=== PATIENT | male | born 1970 | race Caucasian/White ===

== ENCOUNTER 2023-03-31 09:13 | Outpatient (AMB) | payer BC, SELFPAY ==
--- NOTE | 2023-03-31 09:15 | MHC.PC.OV ---
Vital Signs 03/31/23 09:17 Height 6 ft 1 in Weight 211 lb 4 oz BMI 27.9 BP 124/82 Blood Pressure Location Rt brachial Position Sitting Respiration 13 Pulse 77 Pulse Source Pulse Oximeter Temp 98.3 F Temp Source Temporal Artery Scan Pulse Oximetry (%) 98 Oxygen Delivery Method Room Air Intake Visit Reasons: New patient-Requesting physical Intake Note: Patient states that he is currently using a C-PAP and has ran out of supplies and would like orders sent to medical supply store if possible. Patient states that he has had covid a few times and is concerned about lung functions. Patient states that when he was recently outside it felt like he had shortness of breathe and couldnt take a full deep breathe. 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 Marsh Last office visit/CPE: About 2 years Last routine blood work: At least 2 years ago Acute issue(s): Sleep apnea -He is on CPAP PMHx: Sleep apnea, chronic low back pain with bilateral saciatica SurgHx: Microdisectomy, vasectomy FHx: Mom: HTN, DM, asthma, cardiovascular disease SocHx: Nonsmoker. No drugs. Drinks alcohol occassionally He notes that he had a Cologuard test 3 years ago: normal He has not been vaccinated for shingles [facility] Medical History (Updated 03/31/23 @ 09:46 by Katie Peters CNP) Back disorder Surgical History (Updated 03/31/23 @ 09:27 by Gifty Blas MA) H/O microdiscectomy H/O vasectomy Family History (Updated 03/31/23 @ 09:29 by Gifty Blas MA) Mother Asthma High blood pressure Diabetes Cardiovascular disease Social History Housing: House Patient Tobacco Use Status: Never used Tobacco e-Cigarette/Vaping Use: Never Used service: No Current occupational status: employed 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 1. Little interest or pleasure in doing things: not at all 2. Feeling down, depressed, or hopeless: not at all 3. Trouble falling or staying asleep, or sleeping too much: not at all 4. Feeling tired or having little energy: several days 5. Poor appetite or overeating: not at all 6. Feeling bad about yourself - or that you are a failure or have let yourself or your family down: not at all 7. Trouble concentrating on things, such as reading the newspaper or watching television: not at all 8. Moving or speaking so slowly that other people could have noticed. Or the opposite - being so fidgety or restless that you have been moving around a lot more than usual: not at all 9. Thoughts that you would be better off or of hurting yourself in some way: not at all Total score: 1 Source: Developed by Drs. Eleuterio Mason, Namita Morley, Juan Carlos Bradley and colleagues, with an educational yosvany from [employer]. Thrive Questionnaire Date Thrive assessed: 03/31/23 I am a: Patient What is your living situation today?: I have a steady place to live Within the past 12 months, did the food you bought not last and you didn't have the money to get more?: Never true Within the past 12 months, did you worry whether your food would run out before you got money to buy more?: Never true Do you have trouble paying for medicines?: No Do you have trouble getting transportation to medical appointments?: No Do you have trouble paying your heating and electricity bill?: No Do you have trouble taking care of your child, family member or friend?: No Do you have trouble with day-to-day activities such as bathing, preparing meals, shopping, managing finances, etc.?: No Are you currently unemployed and looking for a job?: No Are you interested in more education?: No Please select the resources that you would like help with: None Currently or been in a relationship where the following occur: no concerns reported AUDIT C Alcohol Use Questionnaire (AUDIT-C) 1. How often do you have a drink containing alcohol?: 2-4 times a month 2. How many drinks containing alcohol do you have on a typical day when you are drinking?: 1 or 2 3. How often do you have six or more drinks on one occasion?: Never Total Score: 2 ZEINAB-7 AMB Questionnaire ZEINAB-7 Date ZEINAB - 7 assessed: 03/31/23 Feeling nervous, anxious, or on edge: 0 = Not at all Not being able to stop or control worryin = Not at all Worrying too much about different things: 0 = Not at all Trouble relaxin = Not at all Being so restless that it is hard to sit still: 0 = Not at all Becoming easily annoyed or irritable: 0 = Not at all Feeling afraid as if something awful might happen: 0 = Not at all Total ZEINAB-7 score (0-4 normal; 5-9 mild; 10-14 moderate; 15-21 severe): 0 Source: Developed by Drs. Eleuterio Mason, Namita Morley, Juan Carlos Bradley and colleagues, with an educational yosvany from [employer]. Review of Systems Const Details: Denies chills, Denies fatigue, Denies fever(s), Denies headache(s) and Denies weakness HEENT Denies change in vision, Denies dizziness, Denies headache(s), Denies hearing loss, Denies nasal congestion, Denies sinus pain, Denies sinus pressure and Denies sore throat Card Denies chest pain, Denies lightheadedness, Denies dyspnea and Denies other (palpitations) Resp Denies cough, Denies dyspnea and Denies wheezing GI Denies abdominal pain, Denies melena, Denies hematochezia, Denies change in bowel habits, Denies dyspepsia and Denies nausea Denies hematuria and Denies dysuria Musc Denies abnormal gait, Denies myalgias, Denies arthralgias, Denies numbness and Denies tingling Skin/Breast Denies rash, Denies unusual bruising and Denies wounds Neuro Denies abnormal gait, Denies dizziness, Denies headache(s), Denies memory loss, Denies numbness, Denies Sensory deficit (Neuro), Denies tingling and Denies weakness Psych Denies anxiety, Denies depression and Denies memory loss Endo Denies cold intolerance, Denies fatigue, Denies heat intolerance, Denies polydipsia and Denies polyuria Lukas/Lymph Denies easy bleeding and Denies easy bruising Aller/Immun Denies wheezing Physical exam (Primary Care) Vital Signs: Last Vital Signs Temp 98.3 F 03/31/23 09:17 Pulse 77 03/31/23 09:17 Resp 13 03/31/23 09:17 BP 124/82 03/31/23 09:17 Pulse Ox 98 03/31/23 09:17 Oxygen Delivery Method Room Air 03/31/23 09:17 BMI result Body Mass Index 27.9 Currently or been in a relationship where the following occur: no concerns reported Const Other: General: no acute distress, well developed, alert and awake Nutritional Appearance: well nourished Orientation/consciousness: patient oriented x3 HENMT Head: Yes normocephalic and Yes atraumatic Ears: hearing grossly normal bilaterally and TM's normal bilaterally General nose exam: Normal external nose present and Normal nares present Mouth: Normal oral and palatal mucosa present and moist mucous membranes Teeth and gingiva: dentition normal Throat: Yes oropharynx normal Eyes Pupils: Equal, round and reactive pupils present and Pupil accommodation reflex normal EOM: EOMs intact bilaterally Neck Neck: Yes normal visual inspection, Yes no lymphadenopathy and Yes trachea midline Thyroid: Thyroid normal Carotids: no bruits Lymphatic: no lymphadenopathy noted Chest Chest palpation & inspection: normal inspection of the chest Resp Effort & Inspection: normal respiratory effort Auscultation: clear to auscultation bilaterally Cardio Rate: regular rate Rhythm: regular rhythm Heart sounds: S1 normal heart sound present, S2 normal heart sound present, no gallops, no murmurs and no rubs Bruits: no abdominal aortic bruits and no carotid bruits GI Palpation (GI): No Abdominal aortic bruit present, Soft to palpation, nontender, No hepatosplenomegaly present and No Rebound tenderness present Auscultation: normal bowel sounds General: Yes no CVA tenderness Back/Spine/Pelvis Back: no CVA tenderness Cervical Spine: cervical ROM normal and No Cervical spine tenderness Thoracic/Lumbar Spine: thoraco-lumbar ROM normal, No pain with thoraco-lumbar ROM, No thoracic spinal tenderness and No lumbar spinal tenderness Skin General: warm and dry. Normal skin color. Normal skin turgor Lesions: no lesions Rashes: no rashes Trauma: no lacerations or abrasions Wounds: no wounds Nails: normal Neuro General: patient oriented x3, gait normal and CN's II-XI intact bilaterally Cranial nerves: Yes Equal, round and reactive pupils present Cognition (Neuro): normal cognition Gait exam (Neuro): Normal gait present Motor exam (neuro): 5/5 motor strength present throughout Sensory Exam: No Sensory deficit (Neuro) Deep tendon reflexes (DTR's): Right patellar reflex intensity grade: 2+ and Left patellar reflex intensity grade: 2+ Extrem General: Yes normal to inspection, No edema and No calf tenderness Psych Appearance: grossly normal Affect: normal affect Attitude: cooperative Thought process: Normal thought process present Assessment and Plan Assessment & Plan (1) Normal physical examination, routine: Code(s): Z00.00 - Encounter for general adult medical examination without abnormal findings Plan: No significant physical restrictions or limitations noted Advised to get fasting blood work done and schedule a telehealth visit for labs review Return with symptoms or concerns Verbalized understanding and agreed with plan (2) Sleep apnea: Code(s): G47.30 - Sleep apnea, unspecified Plan: He notes that he has been out of CPAP supplies Referred to sleep medicine Return with symptoms or concerns Verbalized understanding and agreed with treatment plan (3) Chronic low back pain with bilateral sciatica: Code(s): M54.41 - Lumbago with sciatica, right side; M54.42 - Lumbago with sciatica, left side; G89.29 - Other chronic pain Plan: h/o microdisectomy L5. He does yoga and take Advil as needed No acute symptoms Continue with current treatment Warm/cold compresses encouraged Follow-up with worsening or new symptoms Verbalized understanding and agreed with treatment plan (4) Colon cancer screening: Code(s): Z12.11 - Encounter for screening for malignant neoplasm of colon Plan: He notes that he had a Cologuard test 3 years ago: normal Referred to GI for colonoscopy (5) Vaccine counseling: Code(s): Z71.85 - Encounter for immunization safety counseling Plan: He has not been vaccinated for shingles Instructed on importance of vaccination and encouraged to get vaccinated for shingles Verbalized understanding and agreed with the plan (6) Laboratory tests ordered as part of a complete physical exam (CPE): Code(s): Z00.00 - Encounter for general adult medical examination without abnormal findings Plan: Fasting labs ordered as part of a complete physical exam. Advised to fast for at least 10 hours before getting labs drawn. May drink water Verbalized understanding and agreed with treatment plan. Orders: Orders TSH reflex Free T4 Today Z00.00 - Encounter for general adult medical examination without abnormal findings UA CC w/rflx Micro + Cult Today Z00.00 - Encounter for general adult medical examination without abnormal findings PSA, Ultra Sensitive Today Z00.00 - Encounter for general adult medical examination without abnormal findings Complete Blood Count Auto Diff Today Z00.00 - Encounter for general adult medical examination without abnormal findings Comprehensive Herreid. Panel Fast Today Z00.00 - Encounter for general adult medical examination without abnormal findings Lipid Panel Today Z00.00 - Encounter for general adult medical examination without abnormal findings Referrals Gastroenterology Referral Z12.11 - Encounter for screening for malignant neoplasm of colon Sleep Medicine Referral G47.30 - Sleep apnea, unspecified Coding Level of Care Code New Pt Prev Care 40-64y(85701) Diagnoses Normal physical examination, routine Z00.00 Sleep apnea G47.30 Chronic low back pain with bilateral sciatica M54.41; M54.42; G89.29 Colon cancer screening Z12.11 Vaccine counseling Z71.85 Laboratory tests ordered as part of a complete physical exam (CPE) Z00.00
[2023-03-31 09:17] VITALS: BP 124/82; PULSE 77; RESP 13; TEMP 36.8; O2SAT 98; BMI 27.9
== END 2023-03-31 09:57 | disposition home or self-care (01) ==
PROVIDERS: PCP Nurse Practitioner Family; Visit Provider Nurse Practitioner Family
DX: Z00.00 Encounter for general adult medical examination without abnormal findings (principal); G47.30 Sleep apnea, unspecified; M54.41 Lumbago with sciatica, right side; M54.42 Lumbago with sciatica, left side; G89.29 Other chronic pain; Z12.11 Encounter for screening for malignant neoplasm of colon; Z71.85 Encounter for immunization safety counseling
CPT/HCPCS: 99386

== ENCOUNTER 2023-04-13 07:58 | Outpatient (REF) | payer BC, SELFPAY ==
[2023-04-13 11:24] LABS: MANUAL DIFF FLAG NO
[2023-04-13 11:34] LABS: Basophils Percent Auto 0.4 % (0-2); Eosinophils Absolute Auto 0.2 X10*3/uL (0.0-0.4); Eosinophils Percent Auto 2.8 % (0-4); Hematocrit 48.5 % (42.0-52.0); Hemoglobin 16.4 g/dl (14.0-18.0); Imm Gran Abs Auto 0.02 X10*3/uL (0.00-0.03); Imm Gran Pct Auto 0.3 % (0.0-0.4); Lymphocytes Absolute Auto 2.2 X10*3/uL (1.2-4.9); Lymphocytes Percent Auto 31.7 % (20-40); Mean Corpuscular HGB Conc 33.8 g/dl (31.0-36.0); Mean Corpuscular Hemoglobin 29.7 pg (27.0-33.0); Mean Corpuscular Volume 87.9 fL (80.0-98.0); Mean Platelet Volume 11.2 fL (9.4-12.4); Monocytes Absolute Auto 0.6 X10*3/uL (0.1-1.2); Monocytes Percent Auto 8.4 % (2-11); Neutrophils Absolute Auto 3.9 x10*3/uL (2.0-8.3); Neutrophils Percent Auto 56.4 % (45-73); Platelet Count 228 X10*3/uL (160-400); Red Blood Count 5.52 X10*6/uL (4.60-5.80); Red Cell Distribution Width 11.5 % (11.0-16.0); White Blood Count 6.9 X10*3/uL (4.8-10.8)
[2023-04-13 11:34] LABS: Appearance Urine Clear; Color Urine Yellow; Glucose Urine UA Negative (Negative); Leukocyte Esterase Urine Negative (Negative); Nitrite Urine Negative (Negative); Urine Blood Negative (Negative); Urine Ketones Negative (Negative); Urine Protein Negative (Neg-Trace)
[2023-04-13 11:45] LABS: Alanine Aminotransferase 27 U/L (0-40); Albumin Level 4.5 g/dL (3.5-5.0); Alkaline Phosphatase 67 U/L (39-117); Anion Gap 13 (12-20); Aspartate Amino Transferase 22 U/L (5-37); Bilirubin Total 0.6 mg/dL (0.0-1.0); Blood Urea Nitrogen 17 mg/dL (9-16); Calcium 9.6 mg/dL (8.4-10.2); Carbon Dioxide 26 mmol/L (22-29); Chloride 106 mmol/L (96-108); Cholesterol 208 mg/dL (<200); Estimated Glomerular Filt Rate > 60; Glucose Fasting 87 mg/dL (60-99); HDL Cholesterol 44 mg/dL (>40); LDL Cholesterol Calculated 141 mg/dL (<100); Potassium 4.1 mmol/L (3.3-5.1); Sodium 141 mmol/L (135-145); Total Protein 7.4 g/dL (6.5-8.0); Triglycerides 119 mg/dL (<150)
[2023-04-13 12:02] LABS: TSH reflex Free T4 1.37 uIU/mL (0.32-4.0)
[2023-04-19 23:23] LABS: PSA, Ultra Sensitive 0.27 ng/mL
== END 2023-04-13 07:59 | disposition home or self-care (01) ==
LOC: HO.HMGCLDS 07:58
PROVIDERS: PCP Nurse Practitioner Family; Visit Provider Nurse Practitioner Family
DX: Z00.00 Encounter for general adult medical examination without abnormal findings (principal); Z12.5 Encounter for screening for malignant neoplasm of prostate
CPT/HCPCS: 36415; 80053; 80061; 81003; 84153; 84443; 85025

== ENCOUNTER → 2023-04-21 16:53 | Outpatient (AMB) | payer BC, SELFPAY ==
--- NOTE | 2023-04-21 16:06 | A.OFFPC_ITS ---
Intake Visit Reasons: labs review Allergies No Known Allergies Allergy (Verified 04/21/23 16:38) Medication List - Last Reconciled 04/21/23 by Katie Peters CNP No Known Home Meds Tobacco use date assessed: 03/31/23 HPI HPI Comments History of Present Illness Details This is a telephonic telehealth visit for review of recent blood work. Patient established care at the end of last month and had routine labs ordered. He offers no complaints and denies acute symptoms. 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 Eleuterio Mason, Namita Morley, Juan Carlos Bradley and colleagues, with an educational yosvany from [employer]. Review of Systems Const Details: Const Denies chills, Denies fatigue, Denies fever(s), Denies headache(s) and Denies weakness ENT Denies dizziness and Denies headache(s) Card Denies chest pain, Denies lightheadedness, Denies dyspnea and Denies other (Palpitations) Resp Denies cough, Denies dyspnea, Denies wheezing and Denies other ( shortness of breath) GI Denies abdominal pain, Denies melena, Denies hematochezia, Denies change in bowel habits, Denies dyspepsia and Denies nausea Denies hematuria and Denies dysuria Musc Denies abnormal gait, Denies myalgias, Denies arthralgias, Denies numbness and Denies tingling Skin/Breast Denies rash, Denies unusual bruising and Denies wounds Neuro Denies abnormal gait, Denies dizziness, Denies headache(s), Denies memory loss, Denies numbness, Denies Sensory deficit (Neuro), Denies tingling and Denies weakness Psych Denies anxiety, Denies depression, Denies memory loss Endo Denies cold intolerance, Denies fatigue, Denies heat intolerance, Denies polydipsia and Denies polyuria Aller/Immun Denies wheezing Physical exam (Primary Care) Tobacco/Smoking Status: Tobacco use Status Tobacco use date assessed 03/31/23 04/21/23 16:08 Patient Tobacco Use Status Never used Tobacco 04/21/23 16:08 e-Cigarette/Vaping Use Never Used 04/21/23 16:08 Thrive Assessment: Date of Thrive Assessment Date Thrive assessed 03/31/23 04/21/23 16:08 Const Other: Telehealth visit. No physical exam Telehealth Telehealth Location of provider rendering services: practice address Location of patient: other Patient Identification confirmed using: Name, : Yes Telehealth method: voice only Patient verbally consented to treatment: Yes Patient verbally consented to billing insurance company: Yes Patient informed of any privacy concerns related to visit: Yes Assessment and Plan Assessment & Plan (1) Hypercholesterolemia: Code(s): E78.00 - Pure hypercholesterolemia, unspecified Plan: Recent labs reviewed with the patient Results are unremarkable except for slightly elevated total cholesterol and LDL level, 208 and 141 respectively Advised to limit foods high in saturated fat and avoid foods high trans fat Routine exercise encouraged Will recheck lipid levels in 6 months. Advised to fast for 10-12 hours, may drink water only, and get blood work done a few days before his next visit Follow-up in 6 months or return sooner with symptoms or concerns Verbalized understanding and agreed with treatment plan Orders: Orders Lipid Panel 6 Months E78.00 - Pure hypercholesterolemia, unspecified Coding Level of Care Code Tele Est Pt Level 2 (98855) Diagnoses Hypercholesterolemia E78.00 Time Spent (min) 10
== END | disposition home or self-care (01) ==
LOC: HO.HMGFM 16:09
PROVIDERS: PCP Nurse Practitioner Family; Visit Provider Nurse Practitioner Family
DX: E78.00 Pure hypercholesterolemia, unspecified (principal)
CPT/HCPCS: 99441

== ENCOUNTER 2023-05-10 10:27 | Outpatient (AMB) | payer BC, SELFPAY ==
--- NOTE | 2023-05-10 10:28 | A.OFFVIS_ITS ---
Intake Vital Signs 05/10/23 10:30 Height 6 ft 1 in Weight 208 lb BMI 27.4 BP 130/66 Blood Pressure Location Rt brachial Position Sitting Pulse 77 Pulse Oximetry (%) 97 Oxygen Delivery Method Room Air Intake Visit Reasons: I-DOUBLE CUT SAWYER: Sleep Apnea-Confirrmed Allergies No Known Allergies Allergy (Verified 05/10/23 10:37) HPI HPI Comments History of Present Illness Details 53 y/o male patient presents for new in- person visit to manage sleep apnea. Pt moved from [place] and needs home care company to have CPAP supplies. He was diagnosed with mild degree of sleep apnea about 3 years ago. He has been using CPAP at 6 cmH2O, but not having supplies for a long time. The CPAP compliance and therapy response (02/09/23-05/09/23) reviewed. The usage days 91% and the average usage hours was 7 hrs 25 min. The residual AHI was 0.8/hr. Pt reports he sleeps well, rested with CPAP and daytime sleepiness has improved. 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 Cognitive needs: No Hearing needs: Yes Vision needs: No Review of Systems Const All systems reviewed & are unremarkable except as noted in HPI and below Physical Exam Vital Signs: Last Vital Signs Pulse 77 05/10/23 10:30 BP 130/66 05/10/23 10:30 Pulse Ox 97 05/10/23 10:30 Oxygen Delivery Method Room Air 05/10/23 10:30 BMI result Body Mass Index 27.4 Const General: cooperative and comfortable Nutritional Appearance: overweight Orientation/consciousness: patient oriented x3 Neck Neck: Yes full ROM and Yes supple Resp Effort & Inspection: normal respiratory effort and able to speak in complete sentences Neuro General: patient oriented x3 Cranial nerves: Yes CN's II-XII intact bilaterally Cognition (Neuro): normal cognition Gait exam (Neuro): Normal gait present Psych Appearance: grossly normal Affect: normal affect Attitude: cooperative Assessment & Plan Assessment & Plan (1) ESDRAS on CPAP: Code(s): G47.33 - Obstructive sleep apnea (adult) (pediatric) Plan Continue to use CPAP at 6cmH2O as patient experiences good clinical effects. Stressed compliance, use CPAP nightly and more than 4 hrs. Will send supply order with sleep study result to [facility]. Coding Level of Care Code New Pt Level 3 (99133) Diagnoses ESDRAS on CPAP G47.33
[2023-05-10 10:30] VITALS: BP 130/66; PULSE 77; O2SAT 97; BMI 27.4
== END 2023-05-10 10:48 | disposition home or self-care (01) ==
PROVIDERS: PCP Nurse Practitioner Family; Visit Provider Nurse Practitioner Family
DX: G47.33 Obstructive sleep apnea (adult) (pediatric) (principal)
CPT/HCPCS: 99203

== ENCOUNTER → 2023-05-10 10:27 | Outpatient (BNVA) | payer BC, SELFPAY | PROVIDERS: PCP Nurse Practitioner Family; Visit Provider Nurse Practitioner Family ==

== ENCOUNTER 2023-07-06 13:46 | Outpatient (AMB) | payer BC, SELFPAY ==
[2023-07-06 13:53] VITALS: BP 119/70; PULSE 85; BMI 27.7
--- NOTE | 2023-07-06 13:53 | A.OFFVIS_ITS ---
Intake Vital Signs 07/06/23 13:53 Height 6 ft 1 in Weight 209 lb 14.081 oz BMI 27.7 BP 119/70 Blood Pressure Location Lt brachial Position Sitting Pulse 85 Intake Visit Reasons: Colonoscopy Screening Intake Note: New patient in office today for colonoscopy screening. CC: Patient had never have a colonoscopy done before. Denies having any GI concerns today. Allergies No Known Allergies Allergy (Verified 07/06/23 13:56) HPI Colonoscopy Screening HPI Details 53-YEAR-OLD male here for preprocedural meeting to discuss a screening colonoscopy. He is referred by Katie Peters of [facility] primary care. PMX ESDRAS High cholesterol Chronic low back pain with bilateral sciatica * SURGICAL HISTORY Microdiscectomy Vasectomy * ALLERGIES: NKDA * [employer] LABS: Laboratory Tests 04/13/23 08:03 WBC 6.9 Hgb 16.4 Hct 48.5 Plt Count 228 Estimated GFR > 60 Total Bilirubin 0.6 AST 22 ALT 27 Alkaline Phosphata se 67 TSH 1.37 TODAY'S VISIT This is his first colonoscopy. He denies any bowel or upper GI problems. There are no prior problems with anesthesia or sedation.. He denies any cardiac or respiratory problems. No ID problems. He had a maternal uncle who had CRC, no other known FHX. 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 Cognitive needs: No Hearing needs: Yes Vision needs: No Review of Systems Const Denies fatigue, Denies fever(s), Denies night sweats, Denies poor appetite and Denies weight loss Eyes Details: glasses Reports requires corrective lenses ENT Reports Normal hearing present, Denies dental pain, Denies dysphagia, Denies hearing loss, Denies mouth pain, Denies odynophagia, Denies throat swelling, Denies tongue swelling and Reports other (Dentition adequate) Card Reports no additional complaints Resp Reports no additional complaints GI Details: Denies abdominal pain, Denies melena, Denies bloating, Denies hematochezia, Denies constipation, Denies GI cramping, Denies dysphagia, Denies excessive flatus, Denies early satiety, Denies heartburn, Denies diarrhea, Denies nausea, Denies odynophagia, Denies vomiting and Denies hematemesis Skin/Breast Denies pruritus, Denies lesions, Denies rash and Denies jaundice Neuro Reports Normal hearing present and Denies Abnormal speech present Endo Denies fatigue Aller/Immun Denies throat swelling and Denies tongue swelling Physical Exam Vital Signs: Last Vital Signs Pulse 85 07/06/23 13:53 BP 119/70 07/06/23 13:53 BMI result Body Mass Index 27.7 Const General: cooperative, no acute distress, well developed and well groomed Nutritional Appearance: well nourished Orientation/consciousness: oriented to person, oriented to place and oriented to time Limitations: No language barrier HEENT Head: Yes normocephalic and Yes atraumatic Eyes General: appearance normal, both eyes and all related structures Pupils: Equal, round and reactive pupils present Neck Neck: Yes normal visual inspection and Yes no lymphadenopathy Thyroid: Thyroid normal Resp Effort & Inspection: normal respiratory effort and able to speak in complete sentences Auscultation: clear to auscultation bilaterally Cardio Rate: regular rate Rhythm: regular rhythm Heart sounds: Normal, physiologic split S2 sound present Peripheral pulses: radial pulses present and posterior tibial pulses present GI Inspection: No distended and No Abdominal panniculus present Palpation (GI): Soft to palpation, nontender, no guarding, not rigid and No hepatosplenomegaly present Percussion: Yes normal to percussion Auscultation: normal bowel sounds Rectal Exam - Male: Yes deferred Skin General skin exam: no rashes or lesions noted, turgor normal, skin not dry, no jaundice, No spider nevi and no striae Rashes: no rashes Nails: normal Neuro General: oriented to person, oriented to place and oriented to time Cranial nerves: Yes Equal, round and reactive pupils present and Yes Normal hearing present Speech: No Abnormal speech present Extrem General: Yes normal to inspection, No clubbing, No cyanosis and No edema Psych Appearance: grossly normal and well kempt Mental Status: mental status grossly normal Speech and movement: Normal speech and movement present Affect: normal affect Attitude: cooperative Thought process: Normal thought process present and not confabulating Thought content: Normal thought content present Insight: Fair insight present (Psych) Judgement: Fair judgement present (Psych) Assessment & Plan Assessment & Plan (1) Pre-op examination: Code(s): Z01.818 - Encounter for other preprocedural examination (2) ESDRAS on CPAP: Code(s): G47.33 - Obstructive sleep apnea (adult) (pediatric) Plan This is his first colonoscopy. He denies any bowel or upper GI problems. There are no prior problems with anesthesia or sedation.. He denies any cardiac or respiratory problems. No ID problems. He had a maternal uncle who had CRC, no other known FHX. Orders: Orders Colonoscopy - GI Use Only 07/06/23 Z01.818 - Encounter for other preprocedural examination Medications: New peg 3350-electrolytes 236-22.74-6.74 -5.86 gram (Golytely) until fecal effluent is clear; do not exceed a total volume of 2,000 mL 240 mL PO Q10M 1 day 4,000 mL 0RF Z12.11 - Encounter for screening for malignant neoplasm of colon bisacodyl (Dulcolax (bisacodyl)) 10 mg (2 x 5 mg) PO BEDTIME 2 days 4 tabs 0RF Coding Level of Care Code New Pt Level 3 (96038) Diagnoses Pre-op examination Z01.818 ESDRAS on CPAP G47.33
== END 2023-07-06 14:17 | disposition home or self-care (01) ==
PROVIDERS: PCP Nurse Practitioner Family; Visit Provider Nurse Practitioner
DX: Z01.818 Encounter for other preprocedural examination (principal); Z12.11 Encounter for screening for malignant neoplasm of colon; G47.33 Obstructive sleep apnea (adult) (pediatric)
CPT/HCPCS: S0285

== ENCOUNTER → 2023-07-06 13:46 | Outpatient (BNVA) | payer BC, SELFPAY | PROVIDERS: PCP Nurse Practitioner Family; Visit Provider Nurse Practitioner ==

== ENCOUNTER 2023-11-23 08:10 | Outpatient (REF) | payer BC, SELFPAY ==
[2023-11-23 11:58] LABS: Cholesterol 203 mg/dL (<200); HDL Cholesterol 45 mg/dL (>40); LDL Cholesterol Calculated 139 mg/dL (<100); Triglycerides 99 mg/dL (<150)
== END 2023-11-23 08:11 | disposition home or self-care (01) ==
LOC: HO.HMGCLDS 08:10
PROVIDERS: Visit Provider Nurse Practitioner Family
DX: E78.00 Pure hypercholesterolemia, unspecified (principal)
CPT/HCPCS: 36415; 80061

== ENCOUNTER 2023-11-29 09:06 | Outpatient (AMB) | payer BC, SELFPAY ==
--- NOTE | 2023-11-29 09:09 | A.OFFPC_ITS ---
Vital Signs 11/29/23 09:14 Height 6 ft 1 in Weight 207 lb 2 oz BMI 27.3 BP 122/74 Blood Pressure Location Lt brachial Position Sitting Respiration 16 Pulse 82 Pulse Source Pulse Oximeter Temp 98.0 F Temp Source Oral Pulse Oximetry (%) 96 Oxygen Delivery Method Room Air Intake Visit Reasons: Rsch from 11/24 hypercoloestorolmia Intake Note: patient here to follow up on hypercoloestorolmia. [employer] Required: No Allergies No Known Allergies Allergy (Verified 11/29/23 09:35) Medication List - Last Reconciled 11/29/23 by Katie Peters CNP No Known Home Meds Tobacco use date assessed: 11/29/23 Dental Screening Dental Screen Date: 11/29/23 Did you have a dental visit in the last 12 months?: Yes Did you have a dental problem in the last 6 months where you did not have access to dental care?: No Was dental information given to patient?: Patient has dentist HPI HPI Comments History of Present Illness Details 53-year-old male presents for hyperchole sterolemia follow-up He admits to making healthy dietary changes, doing yoga, and stretching He notes that he has been unable to fully inhale since he initially had COVID in 2019. No cough, chest pain, palpitations, or constitutional symptoms [facility] Medical History (Updated 11/29/23 @ 09:50 by Katie Peters CNP) Laboratory tests ordered as part of a complete physical exam (CPE) Vaccine counseling Normal physical examination, routine Sleep apnea Colon cancer screening Back disorder Surgical History H/O microdiscectomy H/O vasectomy Family History Mother Asthma High blood pressure Diabetes Cardiovascular disease Maternal Grandmother Mouth cancer Social History Housing: House Patient Tobacco Use Status: Never used Tobacco e-Cigarette/Vaping Use: Never Used Second Hand Smoke Exposure: No service: No Current occupational status: employed Current occupation: [employer] Cognitive needs: No Hearing needs: Yes Vision needs: No Questionnaire Thrive Questionnaire Date Thrive assessed: 03/31/23 ZEINAB-7 AMB Questionnaire ZEINAB-7 Date ZEINAB - 7 assessed: 03/31/23 Source: Developed by Drs. Eleuterio Mason, aNmita Morley, Juan Carlos Bradley and colleagues, with an educational yosvany from [employer]. Review of Systems Const Details: Const Denies chills, Denies fatigue, Denies fever(s), Denies headache(s) and Denies weakness ENT Denies dizziness and Denies headache(s) Card Denies chest pain, Denies lightheadedness, Denies dyspnea and Denies other (Palpitations) Resp Denies cough, Denies dyspnea, Denies wheezing and Denies other ( shortness of breath) GI Denies abdominal pain, Denies melena, Denies hematochezia, Denies change in bowel habits, Denies dyspepsia and Denies nausea Denies hematuria and Denies dysuria Musc Denies abnormal gait, Denies myalgias, Denies arthralgias, Denies numbness and Denies tingling Skin/Breast Denies rash, Denies unusual bruising and Denies wounds Neuro Denies abnormal gait, Denies dizziness, Denies headache(s), Denies memory loss, Denies numbness, Denies Sensory deficit (Neuro), Denies tingling and Denies weakness Psych Denies anxiety, Denies depression, Denies memory loss Endo Denies cold intolerance, Denies fatigue, Denies heat intolerance, Denies polydipsia and Denies polyuria Aller/Immun Denies wheezing Physical exam (Primary Care) Vital Signs: Last Vital Signs Temp 98.0 F 11/29/23 09:14 Pulse 82 11/29/23 09:14 Resp 16 11/29/23 09:14 BP 122/74 11/29/23 09:14 Pulse Ox 96 11/29/23 09:14 Oxygen Delivery Method Room Air 11/29/23 09:14 BMI result Body Mass Index 27.3 Tobacco/Smoking Status: Tobacco use Status Tobacco use date assessed 11/29/23 11/29/23 09:17 Patient Tobacco Use Status Never used Tobacco 11/29/23 09:11 e-Cigarette/Vaping Use Never Used 11/29/23 09:11 Thrive Assessment: Date of Thrive Assessment Date Thrive assessed 03/31/23 11/29/23 09:11 Const Other: General: no acute distress and well developed Nutritional Appearance: well nourished Orientation/consciousness: patient oriented x3 [facility] Head: Yes normocephalic and Yes atraumatic Eyes General: appearance normal, both eyes and all related structures Pupils: Equal, round and reactive pupils present EOM: EOMs intact bilaterally Resp Effort & Inspection: normal respiratory effort Auscultation: clear to auscultation bilaterally Cardio Rate: regular rate Rhythm: regular rhythm Heart sounds: S1 normal heart sound present, S2 normal heart sound present, no gallops, no murmurs and no rubs GI Palpation (GI): No Abdominal aortic bruit present, Soft to palpation, nontender, No hepatosplenomegaly present and No Rebound tenderness present Auscultation: normal bowel sounds General: Yes no CVA tenderness Back/Spine/Pelvis Back: no CVA tenderness Cervical Spine: cervical ROM normal and No Cervical spine tenderness Thoracic/Lumbar Spine: thoraco-lumbar ROM normal, No pain with thoraco-lumbar ROM, No thoracic spinal tenderness and No lumbar spinal tenderness Extrem General: Yes normal to inspection, No edema and No calf tenderness Skin General: warm and dry. Normal skin color. Normal skin turgor Neuro General: patient oriented x3, gait normal and no focal neuro deficit Cranial nerves: Yes Equal, round and reactive pupils present Cognition (Neuro): normal cognition Gait exam (Neuro): Normal gait present Sensory Exam: No Sensory deficit (Neuro) Psych Appearance: grossly normal Affect: normal affect Attitude: cooperative Thought process: Normal thought process present Assessment and Plan Assessment & Plan (1) Hypercholesterolemia: Code(s): E78.00 - Pure hypercholesterolemia, unspecified Plan: Slight improvement with recent total cholesterol and LDL levels, to 203 and 139 respectively. Triglycerides and HDL levels are normal Advised to limit foods high in saturated fat and avoid foods high in trans fat Routine exercise encouraged Will recheck lipid panel level. Advised to fast for 10-12 hours, may drink water only, and get blood work done before his next visit Follow-up for an extended physical exam and hypercholesterolemia in 4 months Return with symptoms or concerns Verbalized understanding and agreed with the treatment plan (2) Laboratory tests ordered as part of a complete physical exam (CPE): Code(s): Z00.00 - Encounter for general adult medical examination without abnormal findings Plan: Fasting labs ordered as part of a complete physical exam. Advised to fast for at least 10 hours before getting labs drawn. May drink water Verbalized understanding and agreed with treatment plan. (3) Difficulty breathing: Code(s): R06.89 - Other abnormalities of breathing Plan: Unable to fully inhaled since he initially had COVID in 2019. No chest pain, palpitation, cough, or constitutional symptoms. No acute symptoms Lung sounds clear bilaterally Will trial albuterol inhaler. Advised to use as prescribed Follow-up with worsening or new symptoms; may referred to pulmonology Verbalized understanding and agreed with the plan Orders: Orders Comprehensive [place]. Panel Fast 4 Months Z00.00 - Encounter for general adult medical examination without abnormal findings Lipid Panel 4 Months Z00.00 - Encounter for general adult medical examination without abnormal findings Complete Blood Count Auto Diff 4 Months Z00.00 - Encounter for general adult medical examination without abnormal findings TSH reflex Free T4 4 Months Z00.00 - Encounter for general adult medical examination without abnormal findings UA CC w/rflx Micro + Cult 4 Months Z00.00 - Encounter for general adult medical examination without abnormal findings Microalbumin, Random (w Creat) 4 Months Z00.00 - Encounter for general adult medical examination without abnormal findings PSA, Ultra Sensitive 4 Months Z00.00 - Encounter for general adult medical examination without abnormal findings Medications: New albuterol sulfate 90 mcg/actuation 2 puffs inhalation Q4-6H PRN 8.5 grams 3RF shortness of breath or wheezing Coding Level of Care Code Est Pt Level 4 (25697) Complex EM visit Add On G2211 Diagnoses Hypercholesterolemia E78.00 Laboratory tests ordered as part of a complete physical exam (CPE) Z00.00 Difficulty breathing R06.89
[2023-11-29 09:14] VITALS: BP 122/74; PULSE 82; RESP 16; TEMP 36.7; O2SAT 96; BMI 27.3
== END 2023-11-29 09:50 | disposition home or self-care (01) ==
PROVIDERS: PCP Nurse Practitioner Family; Visit Provider Nurse Practitioner Family
DX: E78.00 Pure hypercholesterolemia, unspecified (principal); Z00.00 Encounter for general adult medical examination without abnormal findings; R06.89 Other abnormalities of breathing
CPT/HCPCS: 99214

== ENCOUNTER 2023-12-30 08:10 | Day surgery (SDC) | payer BC, SELFPAY ==
--- NOTE | 2023-12-29 10:40 | HO.ANESPROP2 ---
Documented by User: Katharina Phipps NP 12/29/23 10:40 HPI - Anesthesia Eval Consult details Narrative: 53yo M for Colonoscopy PMFSH Active Problems Active Problems: All Active Problems Difficulty breathing (Acute) Laboratory tests ordered as part of a complete physical exam (CPE) (Acute) Pre-op examination (Acute) ESDRAS on CPAP (Acute) Hypercholesterolemia (Acute) Chronic low back pain with bilateral sciatica (Acute) Past Medical History Medical History (Updated 12/30/23 @ 08:55 by Antonina Garcia, RN) Asthma Vaccine counseling Normal physical examination, routine Sleep apnea Colon cancer screening Laboratory tests ordered as part of a complete physical exam (CPE) Back disorder Family History Family History Mother Asthma High blood pressure Diabetes Cardiovascular disease Maternal Grandmother Mouth cancer Surgical History Surgical History H/O microdiscectomy H/O vasectomy Social History Social History Housing: House Are you a primary career placement services counselor to a significant other at home: No Do you presently have visiting nurse or other home services: No Patient Tobacco Use Status: Never used Tobacco e-Cigarette/Vaping Use: Never Used Second Hand Smoke Exposure: No Use of substances other than those prescribed or required for medical reasons: No Have you been hit, kicked, punched, or otherwise hurt by someone within the past year? 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 Cognitive needs: No Hearing needs: Yes Vision needs: No Meds Allergies Allergy/AdvReac Type Severity Reaction Status Date / Time No Known Allergies Allergy Verified 11/29/23 09:35 Assessment and Plan Assessment Anesthesia Assessment: Chart Reviewed Documented by User: Maribel Peacock MD 12/30/23 09:30 [facility] Past Medical History Medical History (Updated 12/30/23 @ 08:55 by Antonina Garcia, RN) Asthma Vaccine counseling Normal physical examination, routine Sleep apnea Colon cancer screening Laboratory tests ordered as part of a complete physical exam (CPE) Back disorder Family History Family History Mother Asthma High blood pressure Diabetes Cardiovascular disease Maternal Grandmother Mouth cancer Family history of problems with anesthesia: No Surgical History Surgical History H/O microdiscectomy H/O vasectomy History of Problems with Anesthesia: No Social History Social History Housing: House Are you a primary career placement services counselor to a significant other at home: No Do you presently have visiting nurse or other home services: No Patient Tobacco Use Status: Never used Tobacco e-Cigarette/Vaping Use: Never Used Second Hand Smoke Exposure: No Use of substances other than those prescribed or required for medical reasons: No Have you been hit, kicked, punched, or otherwise hurt by someone within the past year? 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 Cognitive needs: No Hearing needs: Yes Vision needs: No Meds Allergies Allergy/AdvReac Type Severity Reaction Status Date / Time No Known Allergies Allergy Verified 11/29/23 09:35 Exam Airway Mallampati Class: II TM Dist: >3cm Neck ROM: Full Heart: rrr Lungs: cta Assessment and Plan Assessment Anesthesia Assessment: Anesthesia Plan Discussed Final Anesthetic Review Family History of Problems with Anesthesia: No History of Problems with Anesthesia: No NPO: Yes ASA Class: II Final Preanesthetic Review: No Changes in Pt Med Stat, Meds/Allgs Chart Reviewed and Consent Obtained/Reviewed Patient Risk: Low Procedure Risk: Low Anesthetic Plan Anesthetic Plan: MAC: Disposition: Standard PACU
--- NOTE | 2023-12-30 07:38 | MHC.SHP ---
Pre-Procedural Eval Section A - 24 Hr Update-Section A only Date of Service: 12/30/23 The patient is an INPATIENT: No The patient has been examined within 24 hours of the surgical procedure. The History & Physical has been completed within 30 days and I have reviewed it.: No Section B - Complete if H&P > 30 days Chief Complaint: Colon cancer screening Relevant Family History (Specify if Yes): No Relevant Social History: None Present Medications: see Short Stay Collaborative assessment Medical History: Significant History (Sleep apnea Colon cancer screening Laboratory tests ordered as part of a complete physical exam (CPE) Back disorder) History of Previous Operations: Relevant previous surgery/procedure and date(s) (H/O microdiscectomy H/O vasectomy) Allergies: Allergies Allergy/AdvReac Type Severity Reaction Status Date / Time No Known Allergies Allergy Verified 11/29/23 09:35 Review of Systems Sugical H&P ROS: Negative: Constitution, Cardiovascular, Respiratory and Gastrointestinal Exam Surgical H&P Exam: Normal: Heart, Normal: Lungs, Normal: Extremities and Normal: Abdomen Plan Diagnosis/Plan: Unchanged I have reviewed the history and physical and performed a pertinent physical examination on my patient. No changes have occurred unless specified. Time Spent With Patient Time: Total time managing care of this patient today ____ minutes.
[2023-12-30 08:55] VITALS: BP 131/88; PULSE 80; RESP 16; TEMP 37.1; O2SAT 96; BMI 26.9
[2023-12-30] MEDS: Lactated Ringers 1,000 ML 100 ML IVCONT (09:11)
[2023-12-30 10:03] VITALS: BP 96/64; PULSE 80; RESP 16; TEMP 36.2; O2SAT 95
--- NOTE | 2023-12-30 10:10 | HO.OPN-COLON ---
Colonoscopy Operative Note Operative Note Date of Service: 12/30/23 Narrative: COLONOSCOPY TILL CECUM WITH SNARE POLYPECTOMY Pre-op diagnosis: Colon cancer screening (first colon). Post-op diagnosis:? Colon polyp, Diverticulosis, hemorrhoids Endoscopist:? Osbaldo Gottlieb MD Anesthesia:?MAC Consent: Indications for the procedure and potential complications of bleeding, perforation, reaction to medications and missed diagnosis were discussed with the patient and informed consent was obtained. Instrument: Olympus CF H 190 L variable stiffness adult colonoscope Monitoring: Vital signs and clinical assessment, intermittent blood pressure monitoring, continuous EKG monitoring, Pulse oximetry and Carbon Dioxide monitoring were done throughout the procedure. Please see anesthesia flowsheet. Colon withdrawl time was 14 minutes. Procedure: The patient was placed in the left lateral decubitis position and pre-procedure medications were administered. After a digital rectal examination of the ano-rectum, the video colonoscope was inserted into the rectum and advanced through the colon to the cecum. The colonoscope was slowly withdrawn in a retrograde panoramic fashion and the colon mucosa was carefully examined including a retroflexed view of the rectum. Findings and interventions are described below. Procedure Difficulty: without difficulty Findings: Terminal Ileum: Not evaluated Cecum: Normal Ascending Colon: Normal Transverse Colon: Normal Descending Colon: Normal Sigmoid Colon: Moderate diverticulosis Rectum: A 6-7 mm diminutive appearing polyp - removed with a cold snare Ano-rectum: Small internal hemorrhoids Colon preparation: Excellent, after some irrigation. [place] Bowel Preparation Scale Right colon; 3 Transverse colon: 3 Left colon; 3 (0 = Unprepared colon segment with mucosa not seen due to solid stool that cannot be cleared. 1 = Portion of mucosa of the colon segment seen, but other areas of the colon segment not well seen due to staining, residual stool and/or opaque liquid. 2 = Minor amount of residual staining, small fragments of stool and/or opaque liquid, but mucosa of colon segment seen well. 3 = Entire mucosa of colon segment seen well with no residual staining, small fragments of stool or opaque liquid) Impression and Post Procedure Diagnosis: Colonoscopy Findings: One small polyp was removed Moderate diverticulosis seen in the sigmoid colon Small hemorrhoids on retroflexed exam. Plan: Pt has a FU appointment on 01/06/24 with Amaya Taylor NP. Repeat Colonoscopy in 5 years if polyps are adenomatous and 10 year if polyps are hyperplastic. Above findings were reviewed with the patient and relevant handouts were given and the discharge area.
[2023-12-30 10:19] VITALS: BP 110/59; PULSE 80; RESP 16; TEMP 36.3; O2SAT 98
== END 2023-12-30 10:39 | disposition home or self-care (01) ==
PROVIDERS: PCP Nurse Practitioner Family; Visit Provider Internal Medicine Gastroenterology
PROC: 0DJD8ZZ Inspection of Lower Intestinal Tract, Via Natural or Artificial Opening Endoscopic (ICD-10-PCS; CPT 45378; principal; 2023-12-30 09:20)
DX: Z12.11 Encounter for screening for malignant neoplasm of colon (principal); K62.1 Rectal polyp; K57.30 Diverticulosis of large intestine without perforation or abscess without bleeding; K64.8 Other hemorrhoids; E78.00 Pure hypercholesterolemia, unspecified; G89.29 Other chronic pain; M54.42 Lumbago with sciatica, left side; M54.41 Lumbago with sciatica, right side; J45.909 Unspecified asthma, uncomplicated; G47.33 Obstructive sleep apnea (adult) (pediatric); Z99.89 Dependence on other enabling machines and devices; Z79.899 Other long term (current) drug therapy; Z98.890 Other specified postprocedural states
CPT/HCPCS: 45385; 88305; J2704

== ENCOUNTER → 2023-12-30 08:10 | Outpatient (BNV) | payer BC, SELFPAY | PROVIDERS: PCP Nurse Practitioner Family; Visit Provider Internal Medicine Gastroenterology | DX: Z12.11 Encounter for screening for malignant neoplasm of colon (principal); K63.5 Polyp of colon; K57.30 Diverticulosis of large intestine without perforation or abscess without bleeding; K64.8 Other hemorrhoids | CPT/HCPCS: 45385 ==

== ENCOUNTER 2024-01-06 10:58 | Outpatient (AMB) | payer BC, SELFPAY ==
[2024-01-06 11:00] VITALS: BP 117/75; PULSE 88; BMI 26.9
--- NOTE | 2024-01-06 11:00 | MHC.OFFVIS ---
Vital Signs 01/06/24 11:00 Height 6 ft 1 in Weight 204 lb 2.369 oz BMI 26.9 BP 117/75 Blood Pressure Location Lt brachial Position Sitting Pulse 88 Intake Visit Reasons: S/P [place]; Dr. Gottlieb Intake Note: Patient in office today in follow up of colonoscopy. CC: Patient reports doing well and denies having any GI symptoms or concerns. Field Administrator Required: No Accompanied by: Self / Same As Patient Allergies No Known Allergies Allergy (Verified 01/06/24 11:03) HPI HPI S/P [place]; Dr. Gottlieb: Details: Assessment & Plan (1) Pre-op examination: Code(s): Z01.818 - Encounter for other preprocedural examination (2) ESDRAS on CPAP: Code(s): G47.33 - Obstructive sleep apnea (adult) (pediatric) Plan This is his first colonoscopy. He denies any bowel or upper GI problems. There are no prior problems with anesthesia or sedation.. He denies any cardiac or respiratory problems. No ID problems. He had a maternal uncle who had CRC, no other known FHX. Orders: Orders Colonoscopy - GI Use Only 07/06/23 Z01.818 - Encounter for other preprocedural examination Medications: New peg 3350-electrolytes 236-22.74-6.74 -5.86 gram (Golytely) until fecal effluent is clear; do not exceed a total volume of 2,000 mL 240 mL PO Q10M 1 day 4,000 mL 0RF Z12.11 - Encounter for screening for malignant neoplasm of colon bisacodyl (Dulcolax (bisacodyl)) 10 mg (2 x 5 mg) PO BEDTIME 2 days 4 tabs 0RF COLONOSCOPY Findings: Terminal Ileum: Not evaluated Cecum: Normal Ascending Colon: Normal Transverse Colon: Normal Descending Colon: Normal Sigmoid Colon: Moderate diverticulosis Rectum: A 6-7 mm diminutive appearing polyp - removed with a cold snare Ano-rectum: Small internal hemorrhoids Impression and Post Procedure Diagnosis: Colonoscopy Findings: One small polyp was removed Moderate diverticulosis seen in the sigmoid colon Small hemorrhoids on retroflexed exam. Plan: Pt has a FU appointment on 01/06/24 with Amaya Taylor NP. Repeat Colonoscopy in 5 years if polyps are adenomatous and 10 year if polyps are hyperplastic. BIOPSY Received: 12/30/23 Diagnosis Rectum, polypectomy: Hyperplastic mucosal polyp TODAY'S VISIT He is agreeable to a 10 year recall. The procedure was well tolerated. The results were explained and the patient is agreeable to the follow-up interval as stated. The bowel pattern has returned to normal. Education was provided to tell any 1st degree relatives about their findings to be sure that they are screened by age 45. Educated that they will be put on a recall list when it is time for their repeat scope but should they move out of state or away from the hospital they will need to remember along with their primary to repeat the procedure in a timely fashion to avoid any adverse complications. [facility] Medical History Asthma Vaccine counseling Normal physical examination, routine Sleep apnea Colon cancer screening Laboratory tests ordered as part of a complete physical exam (CPE) Back disorder Surgical History H/O colonoscopy H/O microdiscectomy H/O vasectomy Family History Mother Asthma High blood pressure Diabetes Cardiovascular disease Maternal Grandmother Mouth cancer Social History Housing: House Are you a primary animal care service worker to a significant other at home: No Do you presently have visiting nurse or other home services: No Patient Tobacco Use Status: Never used Tobacco e-Cigarette/Vaping Use: Never Used Second Hand Smoke Exposure: No service: No Current occupational status: employed 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 Cognitive needs: No Hearing needs: Yes Vision needs: No Review of Systems Const Denies fatigue, Denies fever(s), Denies night sweats, Denies poor appetite and Denies weight loss Eyes Details: glasses Reports requires corrective lenses ENT Reports Normal hearing present, Denies dental pain, Denies dysphagia, Denies hearing loss, Denies mouth pain, Denies odynophagia, Denies throat swelling, Denies tongue swelling and Reports other (Dentition adequate) Card Reports no additional complaints Resp Reports no additional complaints GI Details: Denies abdominal pain, Denies melena, Denies bloating, Denies hematochezia, Denies constipation, Denies GI cramping, Denies dysphagia, Denies excessive flatus, Denies early satiety, Denies heartburn, Denies diarrhea, Denies nausea, Denies odynophagia, Denies vomiting and Denies hematemesis Skin/Breast Denies pruritus, Denies lesions, Denies rash and Denies jaundice Neuro Reports Normal hearing present and Denies Abnormal speech present Endo Denies fatigue Aller/Immun Denies throat swelling and Denies tongue swelling Physical Exam Vital Signs: Last Vital Signs Pulse 88 01/06/24 11:00 BP 117/75 01/06/24 11:00 BMI result Body Mass Index 26.9 Const General: cooperative, no acute distress, well developed and well groomed Nutritional Appearance: average body habitus and well nourished Orientation/consciousness: oriented to person, oriented to place and oriented to time Limitations: No language barrier HEENT Head: Yes normocephalic and Yes atraumatic Eyes General: appearance normal, both eyes and all related structures Pupils: Equal, round and reactive pupils present Neck Neck: Yes normal visual inspection and Yes no lymphadenopathy Thyroid: Thyroid normal Resp Effort & Inspection: normal respiratory effort and able to speak in complete sentences Auscultation: clear to auscultation bilaterally Cardio Rate: regular rate Rhythm: regular rhythm Heart sounds: Normal, physiologic split S2 sound present Peripheral pulses: radial pulses present and posterior tibial pulses present GI Inspection: No distended and No Abdominal panniculus present Palpation (GI): Soft to palpation, nontender, no guarding, not rigid and No hepatosplenomegaly present Percussion: Yes normal to percussion Auscultation: normal bowel sounds Rectal Exam - Male: Yes deferred Skin General skin exam: no rashes or lesions noted, turgor normal, skin not dry, no jaundice, No spider nevi and no striae Rashes: no rashes Nails: normal Neuro General: oriented to person, oriented to place and oriented to time Cranial nerves: Yes Equal, round and reactive pupils present and Yes Normal hearing present Speech: No Abnormal speech present Extrem General: Yes normal to inspection, No clubbing, No cyanosis and No edema Psych Appearance: grossly normal and well kempt Mental Status: mental status grossly normal Speech and movement: Normal speech and movement present Affect: normal affect Attitude: cooperative Thought process: Normal thought process present and not confabulating Thought content: Normal thought content present Insight: Good insight present (Psych) Judgement: Good judgement present (Psych) Assessment & Plan Assessment & Plan (1) Pre-op examination: Code(s): Z01.818 - Encounter for other preprocedural examination Category: Medical Plan He is agreeable to a 10 year recall. The procedure was well tolerated. The results were explained and the patient is agreeable to the follow-up interval as stated. The bowel pattern has returned to normal. Education was provided to tell any 1st degree relatives about their findings to be sure that they are screened by age 45. Educated that they will be put on a recall list when it is time for their repeat scope but should they move out of state or away from the hospital they will need to remember along with their primary to repeat the procedure in a timely fashion to avoid any adverse complications. Coding Level of Care Code Est Pt Level 3 (44564) Diagnoses Pre-op examination Z01.818
== END 2024-01-06 11:10 | disposition home or self-care (01) ==
PROVIDERS: PCP Nurse Practitioner Family; Visit Provider Nurse Practitioner
DX: K63.5 Polyp of colon (principal); K57.30 Diverticulosis of large intestine without perforation or abscess without bleeding; K64.8 Other hemorrhoids
CPT/HCPCS: 99213

== ENCOUNTER → 2024-01-06 10:58 | Outpatient (BNVA) | payer BC, SELFPAY | PROVIDERS: PCP Nurse Practitioner Family; Visit Provider Nurse Practitioner ==

== ENCOUNTER 2024-03-20 08:29 | Outpatient (AMB) | payer BC, SELFPAY ==
--- NOTE | 2024-03-20 08:31 | MHC.PC.OV ---
Vital Signs 03/20/24 08:36 Height 6 ft 1 in Weight 210 lb 4 oz BMI 27.7 BP 118/80 Blood Pressure Location Rt brachial Position Sitting Respiration 16 Pulse 88 Pulse Source Pulse Oximeter Temp 98.5 F Temp Source Oral Pulse Oximetry (%) 97 Oxygen Delivery Method Room Air Intake Visit Reasons: Possible Hernia Intake Note: patient here c/o possible hernia in right lower side Functional Director Required: No Allergies No Known Allergies Allergy (Verified 03/20/24 08:36) Tobacco use date assessed: 03/20/24 Dental Screening Dental Screen Date: 03/20/24 Did you have a dental visit in the last 12 months?: Yes Did you have a dental problem in the last 6 months where you did not have access to dental care?: No Was dental information given to patient?: Patient has dentist HPI HPI Comments History of Present Illness Details The patient presents with right groin discomfort and a lump sensation. The patient is a 54-year-old male presenting with suprapubic groin discomfort and a suspected hernia. The symptoms began a couple of months ago as a feeling of pressure in the lower back and front region, described as similar to wearing a straitjacket. The patient has a history of back issues, though these had been relatively well managed recently. Over the weekend, the patient experienced increased pain and discovered a well-defined lump in the right suprapubic area while doing yoga. The patient's confirmed the presence of the lump, which was reducible with pressure. Following this, the pain decreased slightly, but a sensation of swelling persisted in the area. Additionally, the patient experiences urinary symptoms such as urgency and a slower stream, and associated discomfort when bending over. A suprapubic sensation described as fullness and tightness is also present, and the patient reports a history of lumbar disc herniation with a microdiscectomy performed around three to four years ago. There have been episodes of back muscle spasms accompanying the suprapubic symptoms, and non-prescription medication like Advil has been used for relief. The PSA level was reportedly normal about a year ago. The patient indicates that stress exacerbates the symptoms, which are partially relieved through rest and warm compresses. [facility] Medical History Asthma Vaccine counseling Normal physical examination, routine Sleep apnea Colon cancer screening Laboratory tests ordered as part of a complete physical exam (CPE) Back disorder Surgical History H/O colonoscopy H/O microdiscectomy H/O vasectomy Family History Mother Asthma High blood pressure Diabetes Cardiovascular disease Maternal Grandmother Mouth cancer Social History Housing: House Are you a primary intensive care specialist to a significant other at home: No Do you presently have visiting nurse or other home services: No Patient Tobacco Use Status: Never used Tobacco e-Cigarette/Vaping Use: Never Used Second Hand Smoke Exposure: No service: No Current occupational status: employed 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 1. Little interest or pleasure in doing things: not at all 2. Feeling down, depressed, or hopeless: not at all 3. Trouble falling or staying asleep, or sleeping too much: not at all 4. Feeling tired or having little energy: not at all 5. Poor appetite or overeating: not at all 6. Feeling bad about yourself - or that you are a failure or have let yourself or your family down: not at all 7. Trouble concentrating on things, such as reading the newspaper or watching television: not at all 8. Moving or speaking so slowly that other people could have noticed. Or the opposite - being so fidgety or restless that you have been moving around a lot more than usual: not at all 9. Thoughts that you would be better off or of hurting yourself in some way: not at all Total score: 0 Source: Developed by Drs. Eleuterio Mason, Namita Morley, Juan Carlos Bradley and colleagues, with an educational yosvany from [employer]. Thrive Questionnaire Date Thrive assessed: 03/19/24 I am a: Patient What is your living situation today?: I have a steady place to live Within the past 12 months, did the food you bought not last and you didn't have the money to get more?: Never true Within the past 12 months, did you worry whether your food would run out before you got money to buy more?: Never true Do you have trouble paying for medicines?: No Do you have trouble getting transportation to medical appointments?: No Do you have trouble paying your heating and electricity bill?: No Do you have trouble taking care of your child, family member or friend?: No Do you have trouble with day-to-day activities such as bathing, preparing meals, shopping, managing finances, etc.?: No Are you currently unemployed and looking for a job?: No Are you interested in more education?: No Please select the resources that you would like help with: None Currently or been in a relationship where the following occur: No concerns reported THRIVE Score: 0 AUDIT C Alcohol Use Questionnaire (AUDIT-C) 1. How often do you have a drink containing alcohol?: Monthly or less 2. How many drinks containing alcohol do you have on a typical day when you are drinking?: 1 or 2 3. How often do you have six or more drinks on one occasion?: Never Total Score: 1 ZEINAB-7 AMB Questionnaire ZEINAB-7 Date ZEINAB - 7 assessed: 03/31/23 Feeling nervous, anxious, or on edge: 0 = Not at all Not being able to stop or control worryin = Not at all Worrying too much about different things: 0 = Not at all Trouble relaxin = Not at all Being so restless that it is hard to sit still: 0 = Not at all Becoming easily annoyed or irritable: 0 = Not at all Feeling afraid as if something awful might happen: 0 = Not at all Total ZEINAB-7 score (0-4 normal; 5-9 mild; 10-14 moderate; 15-21 severe): 0 Source: Developed by Drs. Eleuterio Mason, Namita Morley, Juan Carlos Bradley and colleagues, with an educational yosvany from [employer]. Review of Systems Const Details: Const Denies chills, Denies fatigue, Denies fever(s), Denies headache(s) and Denies weakness ENT Denies dizziness and Denies headache(s) Card Denies chest pain, Denies lightheadedness, Denies dyspnea and Denies other (Palpitations) Resp Denies cough, Denies dyspnea, Denies wheezing and Denies other ( shortness of breath) GI Reports gastrointestinal fullness and a tight sensation. No changes in bowel habits. Denies abdominal pain, Denies melena, Denies hematochezia, Denies change in bowel habits, Denies dyspepsia and Denies nausea Reports urinary urgency and reduced urine stream Musc Denies current chronic back pain but reports previous episodes of back spasm. Skin/Breast Denies rash, Denies unusual bruising and Denies wounds Neuro Denies abnormal gait, Denies dizziness, Denies headache(s), Denies memory loss, Denies numbness, Denies Sensory deficit (Neuro), Denies tingling and Denies weakness Psych Denies anxiety, Denies depression, Denies memory loss Endo Denies cold intolerance, Denies fatigue, Denies heat intolerance, Denies polydipsia and Denies polyuria Aller/Immun Denies wheezing Physical exam (Primary Care) Vital Signs: Last Vital Signs Temp 98.5 F 03/20/24 08:36 Pulse 88 03/20/24 08:36 Resp 16 03/20/24 08:36 BP 118/80 03/20/24 08:36 Pulse Ox 97 03/20/24 08:36 Oxygen Delivery Method Room Air 03/20/24 08:36 BMI result Body Mass Index 27.7 Tobacco/Smoking Status: Tobacco use Status Tobacco use date assessed 03/20/24 03/20/24 08:39 Patient Tobacco Use Status Never used Tobacco 03/20/24 08:33 e-Cigarette/Vaping Use Never Used 03/20/24 08:33 PHQ-9: PHQ-9 Score PHQ-9: Total score 0 03/20/24 08:33 Thrive Assessment: Date of Thrive Assessment Date Thrive assessed 03/19/24 03/20/24 08:33 Currently or been in a relationship where the following occur: No concerns reported Const Other: General: no acute distress and well developed Nutritional Appearance: well nourished Orientation/consciousness: patient oriented x3 HENMT Head: Yes normocephalic and Yes atraumatic Eyes General: appearance normal, both eyes and all related structures Pupils: Equal, round and reactive pupils present EOM: EOMs intact bilaterally Resp Effort & Inspection: normal respiratory effort Auscultation: clear to auscultation bilaterally Cardio Rate: regular rate Rhythm: regular rhythm Heart sounds: S1 normal heart sound present, S2 normal heart sound present, no gallops, no murmurs and no rubs GI Palpation (GI): No Abdominal aortic bruit present, Soft to palpation, nontender, No hepatosplenomegaly present and No Rebound tenderness present Auscultation: normal bowel sounds General: Yes no CVA tenderness Back/Spine/Pelvis Back: no CVA tenderness Cervical Spine: cervical ROM normal and No Cervical spine tenderness Thoracic/Lumbar Spine: thoraco-lumbar ROM normal, No pain with thoraco-lumbar ROM, No thoracic spinal tenderness and No lumbar spinal tenderness Extrem General: Yes normal to inspection, No edema and No calf tenderness Skin General: warm and dry. Normal skin color. Normal skin turgor Neuro General: patient oriented x3, gait normal and no focal neuro deficit Cranial nerves: Yes Equal, round and reactive pupils present Cognition (Neuro): normal cognition Gait exam (Neuro): Normal gait present Sensory Exam: No Sensory deficit (Neuro) Psych Appearance: grossly normal Affect: normal affect Attitude: cooperative Thought process: Normal thought process present Coding Level of Care Code Est Pt Level 4 (65935) Diagnoses Right inguinal hernia K40.90 Assessment & Plan Assessment & Plan (1) Right inguinal hernia: Code(s): K40.90 - Unilateral inguinal hernia, without obstruction or gangrene, not specified as recurrent Category: Medical Plan: - Inguinal Hernia: Arrange an ultrasound of the right inguinal region to assess the presence of a hernia or any other abnormalities. Instruct the patient to continue using non-prescription analgesics such as Tylenol or Advil for pain, and to apply warm compresses for comfort. - History of Lumbar Disc Herniation: Monitor for any aggravation of back-related symptoms, recommend continuation of gentle yoga with caution to prevent strain. I discussed with the patient the likelihood of an inguinal hernia based on clinical findings and recommended performing an ultrasound to confirm the diagnosis. We reviewed the potential management strategies if a hernia is confirmed, including possible surgical consultation if symptomatic. I reassured the patient that the PSA result was normal and unlikely related to the current urinary symptoms. The patient was informed about the importance of reporting any worsening symptoms or changes. I provided guidance on managing discomfort with [id number] pain relief and home care measures. - Schedule and complete an ultrasound for further evaluation. - Use Tylenol or Advil for analgesia as needed. - Apply warm compresses to the affected area for relief. - Continue regular yoga practice with caution. - Follow-up if symptoms worsen or if new symptoms arise. Patient was informed and verbally consented to the use of an ambient scribe for clinic note documentation during this visit. Orders: Orders US abdomen limited Today K40.90 - Unilateral inguinal hernia, without obstruction or gangrene, not specified as recurrent
[2024-03-20 08:36] VITALS: BP 118/80; PULSE 88; RESP 16; TEMP 36.9; O2SAT 97; BMI 27.7
== END 2024-03-20 08:56 | disposition home or self-care (01) ==
PROVIDERS: PCP Nurse Practitioner Family; Visit Provider Nurse Practitioner Family
DX: K40.90 Unilateral inguinal hernia, without obstruction or gangrene, not specified as recurrent (principal)

== ENCOUNTER 2024-04-03 07:48 | Outpatient (REF) | payer BC, SELFPAY ==
[2024-04-03 11:02] LABS: Appearance Urine Clear; Color Urine Yellow; Glucose Urine UA Negative (Negative); Leukocyte Esterase Urine Trace (Negative); Nitrite Urine Negative (Negative); PH 6.5 (5.0-9.0); UMIC TRIGGER UACC YES; Urine Blood Negative (Negative); Urine Ketones Negative (Negative); Urine Protein Negative (Neg-Trace)
[2024-04-03 11:09] LABS: Bacteria Urine None Seen (None Seen); Hyaline Casts Urine 0-2 /LPF (0-2); RBC Urine 0-2 /HPF (0-2); Squamous Epithelial Cell Urine 0-2 /HPF (0-2); WBC Urine 0-5 /HPF (0-5)
[2024-04-03 11:27] LABS: MANUAL DIFF FLAG NO
[2024-04-03 11:31] LABS: Basophils Percent Auto 0.6 % (0-2); Eosinophils Absolute Auto 0.2 X10*3/uL (0.0-0.4); Eosinophils Percent Auto 3.8 % (0-4); Hematocrit 48.4 % (42.0-52.0); Hemoglobin 16.5 g/dl (14.0-18.0); Imm Gran Abs Auto 0.02 X10*3/uL (0.00-0.03); Imm Gran Pct Auto 0.3 % (0.0-0.4); Lymphocytes Absolute Auto 2.1 X10*3/uL (1.2-4.9); Lymphocytes Percent Auto 32.9 % (20-40); Mean Corpuscular HGB Conc 34.1 g/dl (31.0-36.0); Mean Corpuscular Hemoglobin 30.6 pg (27.0-33.0); Mean Corpuscular Volume 89.8 fL (80.0-98.0); Mean Platelet Volume 11.3 fL (9.4-12.4); Monocytes Absolute Auto 0.6 X10*3/uL (0.1-1.2); Monocytes Percent Auto 9.6 % (2-11); Neutrophils Absolute Auto 3.3 x10*3/uL (2.0-8.3); Neutrophils Percent Auto 52.8 % (45-73); Platelet Count 209 X10*3/uL (160-400); Red Blood Count 5.39 X10*6/uL (4.60-5.80); Red Cell Distribution Width 11.8 % (11.0-16.0); White Blood Count 6.2 X10*3/uL (4.8-10.8)
[2024-04-03 12:03] LABS: Alanine Aminotransferase 33 U/L (0-40); Albumin Level 4.5 g/dL (3.5-5.0); Alkaline Phosphatase 75 U/L (39-117); Anion Gap 10 (12-20); Aspartate Amino Transferase 30 U/L (5-37); Bilirubin Total 0.7 mg/dL (0.0-1.0); Blood Urea Nitrogen 17 mg/dL (9-16); Calcium 9.6 mg/dL (8.4-10.2); Carbon Dioxide 27 mmol/L (22-29); Chloride 107 mmol/L (96-108); Cholesterol 224 mg/dL (<200); Estimated Glomerular Filt Rate > 60; Glucose Fasting 89 mg/dL (60-99); HDL Cholesterol 50 mg/dL (>40); LDL Cholesterol Calculated 149 mg/dL (<100); Sodium 140 mmol/L (135-145); TSH reflex Free T4 1.25 uIU/mL (0.32-4.0); Total Protein 7.1 g/dL (6.5-8.0); Triglycerides 126 mg/dL (<150)
[2024-04-03 12:08] LABS: Creatinine Urine 103.02 mg/dL; Microalbum/Creatinine Ratio Ur 7.7 ug/mg cr (<30)
[2024-04-10 21:44] LABS: PSA, Ultra Sensitive 0.29 ng/mL
== END 2024-04-03 07:49 | disposition home or self-care (01) ==
LOC: HO.HMGCLDS 07:48
PROVIDERS: PCP Nurse Practitioner Family; Visit Provider Nurse Practitioner Family
DX: Z00.00 Encounter for general adult medical examination without abnormal findings (principal); Z12.5 Encounter for screening for malignant neoplasm of prostate
CPT/HCPCS: 36415; 80053; 80061; 81001; 81003; 82043; 82570; 84153; 84443; 85025

== ENCOUNTER 2024-04-05 07:49 | Outpatient (REF) | payer BC, SELFPAY ==
--- NOTE | ~2024-04-05 | US_ITS ---
EXAMINATION: US PELVIS, LIMITED/FOLLOW UP CLINICAL INFORMATION: Right groin discomfort, with palpable lump. COMPARISON: None available. TECHNIQUE: Real-time color and grayscale ultrasound imaging of the right groin was performed with and without Valsalva maneuver. Imaging of the left groin was performed for comparison purposes. FINDINGS: In the right groin, there is a partially reducible right inguinal fat-containing hernia present, with the right hernia sac measuring 2.3 cm. In the left groin there is a partially reducible fat-containing inguinal hernia present, the left hernia sac measuring 1.1 cm. US/US pelvic limited IMPRESSION: Partially reducible small right greater than left inguinal hernias. Electronically signed by: Ramón Sage MD 04/11/2024 09:38 AM AN[facility]
== END 2024-04-05 07:50 | disposition home or self-care (01) ==
LOC: HO.US 07:49
PROVIDERS: PCP Nurse Practitioner Family; Visit Provider Nurse Practitioner Family
DX: K40.90 Unilateral inguinal hernia, without obstruction or gangrene, not specified as recurrent (principal)
CPT/HCPCS: 76857

== ENCOUNTER → 2024-04-05 07:51 | Outpatient (BNV) | payer BC, SELFPAY | PROVIDERS: PCP Nurse Practitioner Family; Visit Provider Radiology Diagnostic Radiology | DX: K40.90 Unilateral inguinal hernia, without obstruction or gangrene, not specified as recurrent (principal) | CPT/HCPCS: 76857 ==

== ENCOUNTER 2024-04-17 08:00 | Outpatient (AMB) | payer BC, SELFPAY ==
--- NOTE | 2024-04-17 08:03 | A.OFFPC_ITS ---
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 Allergies No Known Allergies Allergy (Verified 04/17/24 08:16) Medication List - Last Reconciled 04/17/24 by Katie Peters CNP albuterol sulfate 90 mcg/actuation 2 puffs inhalation Q4-6H PRN Tobacco use date assessed: 04/17/24 Dental Screening Dental Screen Date: 04/17/24 Did you have a dental visit in the last 12 months?: Yes Did you have a dental problem in the last 6 months where you did not have access to dental care?: No Was dental information given to patient?: Patient has dentist HPI HPI Comments History of Present Illness Details 54-year-old male presents for an extende d physical exam. He has past medical history significant for Sleep apnea (on CPAP), chronic low back pain with bilateral saciatica, exercise induced SOB/wheezing post covid-19 infection 2019 (on albuterol inhaler). Acute issue(s) - Persistent discomfort to right groin x 2 months - Recent ultrasound revealed Partially r educible small right greater than left inguinal hernias Health Maintenance - Last eye exam less that two years ago. He has an eye exam scheduled for next month. He will sign a release for his PCP to obtain record - Last colonoscopy was at [facility] [place] - Last dental visit about 7-8 months ago . He has an appointment scheduled for cleaning in the next 2 months - Last tetanus vaccine 5-6 years ago - Up-to-date on the influenza and shingles vaccine Social History - Nonsmoker. Does not vape. Drinks 1 bee r/wine once monthly. No recreational drug use - Generally makes healthy dietary choice s. Exercises routinely. Generally sleep well [facility] Medical History (Updated 04/17/24 @ 08:31 by Katie Peters CNP) Normal physical examination, routine Asthma Vaccine counseling Sleep apnea Colon cancer screening Laboratory tests ordered as part of a complete physical exam (CPE) Back disorder Surgical History H/O colonoscopy H/O microdiscectomy H/O vasectomy Family History Mother Asthma High blood pressure Diabetes Cardiovascular disease Maternal Grandmother Mouth cancer Social History Housing: House Are you a primary personal caregiver to a significant other at home: No Do you presently have visiting nurse or other home services: No Patient Tobacco Use Status: Never used Tobacco e-Cigarette/Vaping Use: Never Used Second Hand Smoke Exposure: No service: No Current occupational status: employed 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 1. Little interest or pleasure in doing things: not at all 2. Feeling down, depressed, or hopeless: not at all 3. Trouble falling or staying asleep, or sleeping too much: several days 4. Feeling tired or having little energy: not at all 5. Poor appetite or overeating: not at all 6. Feeling bad about yourself - or that you are a failure or have let yourself or your family down: not at all 7. Trouble concentrating on things, such as reading the newspaper or watching television: not at all 8. Moving or speaking so slowly that other people could have noticed. Or the opposite - being so fidgety or restless that you have been moving around a lot more than usual: not at all 9. Thoughts that you would be better off or of hurting yourself in some way: not at all Total score: 1 Depression Screening Interpretation: Negative Depression Screening Done: Yes 25925 - PHQ-9 Billing: Yes Source: Developed by Drs. Eleuterio Mason, Namita Morley, Juan Carlos Bradley and colleagues, with an educational yosvany from [employer] ([employer]). Thrive Questionnaire Date Thrive assessed: 04/17/24 I am a: Patient What is your living situation today?: I have a steady place to live Within the past 12 months, did the food you bought not last and you didn't have the money to get more?: Never true Within the past 12 months, did you worry whether your food would run out before you got money to buy more?: Never true Do you have trouble paying for medicines?: No Do you have trouble getting transportation to medical appointments?: No Do you have trouble paying your heating and electricity bill?: No Do you have trouble taking care of your child, family member or friend?: No Do you have trouble with day-to-day activities such as bathing, preparing meals, shopping, managing finances, etc.?: No Are you currently unemployed and looking for a job?: No Are you interested in more education?: No Please select the resources that you would like help with: None Currently or been in a relationship where the following occur: No concerns reported THRIVE Score: 0 AUDIT C Alcohol Use Questionnaire (AUDIT-C) 1. How often do you have a drink containing alcohol?: Monthly or less 2. How many drinks containing alcohol do you have on a typical day when you are drinking?: 1 or 2 3. How often do you have six or more drinks on one occasion?: Never Total Score: 1 Score Reviewed/Action Taken: Yes ZEINAB-7 AMB Questionnaire ZEINAB-7 Date ZEINAB - 7 assessed: 04/17/24 Feeling nervous, anxious, or on edge: 0 = Not at all Not being able to stop or control worryin = Not at all Worrying too much about different things: 0 = Not at all Trouble relaxin = Not at all Being so restless that it is hard to sit still: 0 = Not at all Becoming easily annoyed or irritable: 0 = Not at all Feeling afraid as if something awful might happen: 0 = Not at all Total ZEINAB-7 score (0-4 normal; 5-9 mild; 10-14 moderate; 15-21 severe): 0 Source: Developed by Drs. Eleuterio Mason, Namita Morley, Juan Carlos Bradley and colleagues, with an educational yosvany from [employer] ([employer]). ZEINAB-7 Assessment Billing ZEINAB-7 Assessment Tool: ZEINAB-7 Assessment 25682 ACT Questionnaire In the past 4 weeks, how much of the time did your asthma keep you from getting as much done at work, school or at home?: None of the time During the past 4 weeks, how often have you had shortness of breath?: 1-2 times a week During the past 4 weeks, how often did your asthma symptoms wake you up at night or earlier than usual in the morning?: Not at all During the past 4 weeks, how often have you had to use your rescue inhaler or nebulizer medication?: Not at all How would you rate your asthma control during the past 4 weeks?: Completely controlled Score: 24 Review of Systems Const Details: Denies chills, Denies fatigue, Denies fever(s), Denies headache(s) and Denies weakness HEENT Denies change in vision, Denies dizziness, Denies headache(s), Denies hearing loss, Denies nasal congestion, Denies sinus pain, Denies sinus pressure and Denies sore throat Card Denies chest pain, Denies lightheadedness, Denies dyspnea and Denies other (palpitations) Resp Denies cough, Denies dyspnea and Denies wheezing GI Denies abdominal pain, Denies melena, Denies hematochezia, Denies change in bowel habits, Denies dyspepsia and Denies nausea Denies hematuria and Denies dysuria Musc Denies abnormal gait, Denies myalgias, Denies arthralgias, Denies numbness and Denies tingling Skin/Breast Denies rash, Denies unusual bruising and Denies wounds Neuro Denies abnormal gait, Denies dizziness, Denies headache(s), Denies memory loss, Denies numbness, Denies Sensory deficit (Neuro), Denies tingling and Denies weakness Psych Denies anxiety, Denies depression and Denies memory loss Endo Denies cold intolerance, Denies fatigue, Denies heat intolerance, Denies polydipsia and Denies polyuria Lukas/Lymph Denies easy bleeding and Denies easy bruising Aller/Immun Denies wheezing Physical exam (Primary Care) Tobacco/Smoking Status: Tobacco use Status Tobacco use date assessed 03/20/24 03/20/24 08:39 Patient Tobacco Use Status Never used Tobacco 03/20/24 08:33 e-Cigarette/Vaping Use Never Used 03/20/24 08:33 Depression Screening Interpretation: Negative Thrive Assessment: Date of Thrive Assessment Date Thrive assessed 03/19/24 03/20/24 08:33 Currently or been in a relationship where the following occur: No concerns reported Const Other: General: no acute distress, well developed, alert and awake Nutritional Appearance: well nourished Orientation/consciousness: patient oriented x3 [facility] Head: Yes normocephalic and Yes atraumatic Ears: hearing grossly normal bilaterally and TM's normal bilaterally General nose exam: Normal external nose present and Normal nares present Mouth: Normal oral and palatal mucosa present and moist mucous membranes Teeth and gingiva: dentition normal Throat: Yes oropharynx normal Eyes Pupils: Equal, round and reactive pupils present and Pupil accommodation reflex normal EOM: EOMs intact bilaterally Neck Neck: Yes normal visual inspection, Yes no lymphadenopathy and Yes trachea midline Thyroid: Thyroid normal Carotids: no bruits Lymphatic: no lymphadenopathy noted Chest Chest palpation & inspection: normal inspection of the chest Resp Effort & Inspection: normal respiratory effort Auscultation: clear to auscultation bilaterally Cardio Rate: regular rate Rhythm: regular rhythm Heart sounds: S1 normal heart sound present, S2 normal heart sound present, no gallops, no murmurs and no rubs Bruits: no abdominal aortic bruits and no carotid bruits GI Palpation (GI): No Abdominal aortic bruit present, Soft to palpation, nontender, No hepatosplenomegaly present and No Rebound tenderness present Auscultation: normal bowel sounds General: Yes no CVA tenderness Back/Spine/Pelvis Back: no CVA tenderness Cervical Spine: cervical ROM normal and No Cervical spine tenderness Thoracic/Lumbar Spine: thoraco-lumbar ROM normal, No pain with thoraco-lumbar ROM, No thoracic spinal tenderness and No lumbar spinal tenderness Skin General: warm and dry. Normal skin color. Normal skin turgor Lesions: no lesions Rashes: no rashes Trauma: no lacerations or abrasions Wounds: no wounds Nails: normal Neuro General: patient oriented x3, gait normal and CN's II-XI intact bilaterally Cranial nerves: Yes Equal, round and reactive pupils present Cognition (Neuro): normal cognition Gait exam (Neuro): Normal gait present Motor exam (neuro): 5/5 motor strength present throughout Sensory Exam: No Sensory deficit (Neuro) Deep tendon reflexes (DTR's): Right patellar reflex intensity grade: 2+ and Left patellar reflex intensity grade: 2+ Extrem General: Yes normal to inspection, No edema and No calf tenderness Psych Appearance: grossly normal Affect: normal affect Attitude: cooperative Thought process: Normal thought process present Coding Level of Care Code Est Pt Level 3 (51286) Est Pt Prev Care 40-64y(96759) Diagnoses Normal physical examination, routine Z00.00 Hypercholesterolemia E78.00 Bilateral inguinal hernia K40.20 Difficulty breathing R06.89 Additional Codes ZEINAB-7 Assessment Billing - ZEINAB-7 Assessment Tool: ZEINAB-7 Assessment 08418 ([id number]) PHQ-9 - 68452 - PHQ-9 Billing: Yes ([id number]) Assessment & Plan Assessment & Plan (1) Normal physical examination, routine: Code(s): Z00.00 - Encounter for general adult medical examination without abnormal findings Category: Medical Plan: No significant functional limitation noted. (2) Hypercholesterolemia: Code(s): E78.00 - Pure hypercholesterolemia, unspecified Category: Medical Plan: Recent total cholesterol and LDL levels are elevated, 224 and 149 respectively. Will start atorvastatin 10 mg daily at bedtime. Advised to take as prescribed. Instructed on the use, benefits, and potential adverse reactions of the medication. Advised to limit foods high in saturated fat and avoid foods high in trans fat. Routine exercise encouraged. Advised to fast for 10-12 hours, may get blood work only, and get lipid panel blood work done in 2-3 days before next visit. Follow-up in 6 weeks. Verbalized understanding and agreed with the plan. (3) Bilateral inguinal hernia: Code(s): K40.20 - Bilateral inguinal hernia, without obstruction or gangrene, not specified as recurrent Category: Medical Plan: Constant discomfort of the right groin. Recent ultrasound revealed scan Partially reducible small right greater than left inguinal hernias. Referred to general surgery. (4) Difficulty breathing: Code(s): R06.89 - Other abnormalities of breathing Category: Medical Plan: Exercise induced SOB/wheezing post covid-19 infection 2019. Albuterol inhaler as prescribed. Orders: Orders 2 Lipid Panel 2 Months E78.00 - Pure hypercholesterolemia, unspecified Referrals General Surgery Referral K40.20 - Bilateral inguinal hernia, without obstruction or gangrene, not specified as recurrent Medications: New atorvastatin 10 mg PO BEDTIME 90 days 90 tabs 1RF
[2024-04-17 08:12] VITALS: BP 136/76; PULSE 81; RESP 16; TEMP 36.7; O2SAT 97; BMI 27.6
== END 2024-04-17 08:31 | disposition home or self-care (01) ==
PROVIDERS: PCP Nurse Practitioner Family; Visit Provider Nurse Practitioner Family
DX: Z00.00 Encounter for general adult medical examination without abnormal findings (principal); E78.00 Pure hypercholesterolemia, unspecified; K40.20 Bilateral inguinal hernia, without obstruction or gangrene, not specified as recurrent; R06.89 Other abnormalities of breathing

== ENCOUNTER → 2024-04-17 08:00 | Outpatient (BNVA) | payer BC, SELFPAY | PROVIDERS: PCP Nurse Practitioner Family; Visit Provider Nurse Practitioner Family | DX: Z00.00 Encounter for general adult medical examination without abnormal findings (principal); E78.00 Pure hypercholesterolemia, unspecified; K40.20 Bilateral inguinal hernia, without obstruction or gangrene, not specified as recurrent; R06.89 Other abnormalities of breathing; G47.33 Obstructive sleep apnea (adult) (pediatric); Z86.16 Personal history of COVID-19; Z99.89 Dependence on other enabling machines and devices | CPT/HCPCS: 96127; 96160 ==

== ENCOUNTER 2024-04-18 07:18 | Outpatient (AMB) | payer BC, SELFPAY ==
--- NOTE | 2024-04-18 07:23 | MHC.OFFVIS ---
Vital Signs 04/18/24 07:30 Height 6 ft 1 in Weight 201 lb BMI 26.5 BP 138/75 Blood Pressure Location Rt brachial Position Sitting Pulse 79 Intake Visit Reasons: Bilateral inguinal hernia Intake Note: Patient referred by Katie Peters for bilateral inguinal hernia. Patient c/o: pain, difficulty when bending. Denies nausea, diarrhea, constipation. Pelvic US: 04-05-2024. 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 He has had this few months time. He has pain and swelling of the right groin. He does not do excessively strenuous things but his active. Otherwise patient has regular bowel habits. Tolerating his diet. His fairly active. Chart was reviewed and patient evaluated [facility] Medical History Normal physical examination, routine Asthma Vaccine counseling Sleep apnea Colon cancer screening Laboratory tests ordered as part of a complete physical exam (CPE) Back disorder Surgical History H/O colonoscopy H/O microdiscectomy H/O vasectomy Family History Mother Asthma High blood pressure Diabetes Cardiovascular disease Maternal Grandmother Mouth cancer Social History Housing: House Are you a primary home health care physician to a significant other at home: No Do you presently have visiting nurse or other home services: No Patient Tobacco Use Status: Never used Tobacco e-Cigarette/Vaping Use: Never Used Second Hand Smoke Exposure: No service: No Current occupational status: employed 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 Abdomen is soft and benign. Left groin negative. Genitalia within normal limits. Moderately sized reducible right inguinal hernia. Assessment & Plan Assessment & Plan (1) Right inguinal hernia: Code(s): K40.90 - Unilateral inguinal hernia, without obstruction or gangrene, not specified as recurrent Category: Surgical Plan Risks, benefits, and alternatives of open right inguinal hernia repair with mesh reviewed with the patient included but not limited to bleeding, infection, recurrence, numbness, pain, scarring the patient wished to proceed. All questions answered. Arrangements were made for this. Coding Level of Care Code New Pt Level 5 (40267) Diagnoses Right inguinal hernia K40.90
[2024-04-18 07:30] VITALS: BP 138/75; PULSE 79; BMI 26.5
== END 2024-04-18 07:50 | disposition home or self-care (01) ==
PROVIDERS: PCP Nurse Practitioner Family; Referring Provider Nurse Practitioner Family; Visit Provider Surgery
DX: K40.90 Unilateral inguinal hernia, without obstruction or gangrene, not specified as recurrent (principal)
CPT/HCPCS: 99204

== ENCOUNTER 2024-05-03 11:54 | Day surgery (SDC) | payer BC, SELFPAY ==
[2024-04-30 09:41] VITALS: BMI 26.5
--- NOTE | 2024-05-03 05:26 | MHC.SHP ---
Pre-Procedural Eval Section A - 24 Hr Update-Section A only Date of Service: 05/03/24 The patient is an INPATIENT: No Changes since office visit: No Cold of Flu in the past 2 weeks, No New Medical Problems, No Changes in Medication and No Patient answered all questions Section B - Complete if H&P > 30 days Chief Complaint: Unilateral inguinal hernia, without obstruction or Allergies: Allergies Allergy/AdvReac Type Severity Reaction Status Date / Time No Known Allergies Allergy Verified 04/18/24 07:24 Review of Systems Sugical H&P ROS: Negative: Constitution, Cardiovascular, Respiratory, Neurological, Psychiatric, Hem-Onc, Allergic/Immunologic, Gastrointestinal, Genitourinary, Musculoskeletal, Integumentary, Endocrine and Eyes/Ears/Nose/Throat Exam Surgical H&P Exam: Normal: HEENT, Normal: Heart, Normal: Lungs, Normal: Extremities, Normal: Abdomen, Normal: Skin and Normal: Neurological Plan I have reviewed the history and physical and performed a pertinent physical examination on my patient. No changes have occurred unless specified. Time Spent With Patient Time: Total time managing care of this patient today ____ minutes.
[2024-05-03 13:19] VITALS: BP 132/82; PULSE 60; RESP 16; TEMP 36.7; O2SAT 96; BMI 26.6
[2024-05-03] MEDS: Lactated Ringers 1,000 ML 100 ML IVCONT (13:21)
--- NOTE | 2024-05-03 13:30 | P.CONAN_ITS ---
Documented by User: Katharina Phipps NP 05/01/24 10:08 HPI - Anesthesia Eval Consult details Narrative: 54yo M for Right ?Open Hernia Inguinal Reducible repair with mesh PMFSH Active Problems Active Problems: All Active Problems Right inguinal hernia (Acute) Bilateral inguinal hernia (Acute) Right inguinal hernia (Acute) Difficulty breathing (Acute) Pre-op examination (Acute) ESDRAS on CPAP (Acute) Hypercholesterolemia (Acute) Chronic low back pain with bilateral sciatica (Acute) Normal physical examination, routine (Acute) Laboratory tests ordered as part of a complete physical exam (CPE) (Acute) Past Medical History Medical History (Updated 04/30/24 @ 09:28 by La Douglas RN) Elevated cholesterol Asthma Vaccine counseling Sleep apnea Back disorder Family History Family History Mother Asthma High blood pressure Diabetes Cardiovascular disease Maternal Grandmother Mouth cancer Family history of problems with anesthesia: No Surgical History Surgical History (Updated 04/18/24 @ 07:52 by Mik Frankel MD) H/O colonoscopy H/O microdiscectomy H/O vasectomy History of Problems with Anesthesia: No Social History Social History Housing: House Are you a primary critical care clinical nurse specialist to a significant other at home: No Do you presently have visiting nurse or other home services: No Patient Tobacco Use Status: Never used Tobacco e-Cigarette/Vaping Use: Never Used Second Hand Smoke Exposure: No Use of substances other than those prescribed or required for medical reasons: No Have you been hit, kicked, punched, or otherwise hurt by someone within the past year? 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 Cognitive needs: No Hearing needs: Yes Vision needs: No Meds Allergies Allergy/AdvReac Type Severity Reaction Status Date / Time No Known Allergies Allergy Verified 04/18/24 07:24 Exam Height,Weight and Vital Signs: Height 6 ft 1 in Weight 91.172 kg Pertinent Lab Results Pertinent Lab Results: Laboratory Tests 04/03/24 07:53 WBC 6.2 Hgb 16.5 Hct 48.4 Plt Count 209 Sodium 140 Potassium 4.0 Chloride 107 Carbon Dioxide 27 BUN 17 H Creatinine 0.86 Assessment and Plan Assessment Anesthesia Assessment: Chart Reviewed Final Anesthetic Review Family History of Problems with Anesthesia: No History of Problems with Anesthesia: No Documented by User: Myra Camargo DO 05/03/24 15:04 [facility] Past Medical History Medical History (Updated 04/30/24 @ 09:28 by La Douglas RN) Elevated cholesterol Asthma Vaccine counseling Sleep apnea Back disorder Family History Family History Mother Asthma High blood pressure Diabetes Cardiovascular disease Maternal Grandmother Mouth cancer Family history of problems with anesthesia: No Surgical History Surgical History (Updated 04/18/24 @ 07:52 by Mik Frankel MD) H/O colonoscopy H/O microdiscectomy H/O vasectomy History of Problems with Anesthesia: No Social History Social History Housing: House Are you a primary critical care clinical nurse specialist to a significant other at home: No Do you presently have visiting nurse or other home services: No Patient Tobacco Use Status: Never used Tobacco e-Cigarette/Vaping Use: Never Used Second Hand Smoke Exposure: No Use of substances other than those prescribed or required for medical reasons: No Have you been hit, kicked, punched, or otherwise hurt by someone within the past year? 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 Cognitive needs: No Hearing needs: Yes Vision needs: No Meds Allergies Allergy/AdvReac Type Severity Reaction Status Date / Time No Known Allergies Allergy Verified 04/18/24 07:24 Exam Exam Date and Time: 05/03/24 1328 Height,Weight and Vital Signs: Height 6 ft 1 in Weight 91.172 kg Vital Signs Temperature 98.1 F 05/03/24 13:19 Pulse Rate 60 05/03/24 13:19 Respiratory Rate 16 05/03/24 13:19 Blood Pressure 132/82 05/03/24 13:19 Pulse Oximetry 96 05/03/24 13:19 Oxygen Delivery Method Room Air 05/03/24 13:19 Temperature 98.1 F 05/03/24 13:19 Pulse Rate 60 05/03/24 13:19 Respiratory Rate 16 05/03/24 13:19 Blood Pressure 132/82 05/03/24 13:19 Pulse Oximetry 96 05/03/24 13:19 Oxygen Delivery Method Room Air 05/03/24 13:19 Airway Mallampati Class: II TM Dist: >3cm Neck ROM: Full Loose/Missing/Broken Teeth: No (patient denies any loose or broken teeth) Heart: S1S2 Lungs: CTAB Assessment and Plan Assessment Anesthesia Assessment: Anesthesia Plan Discussed and Chart Reviewed Final Anesthetic Review Family History of Problems with Anesthesia: No History of Problems with Anesthesia: No NPO: Yes ASA Class: II Final Preanesthetic Review: No Changes in Pt Med Stat, Meds/Allgs Chart Reviewed, Consent Obtained/Reviewed and Anes Risks/Benef Reviewed Patient Risk: Low Procedure Risk: Low Anesthetic Plan Anesthetic Plan: MAC: and Agree w/ Assess. and Plan Disposition: Standard PACU
--- NOTE | 2024-05-03 15:16 | W.PM.OPN ---
Operative Note Operative Note Date of Service: 05/03/24 Narrative: Preoperative diagnosis: [] Symptomatic, enlarged right inguinal hernia Postop diagnosis: [] The same Procedure [] open right inguinal herniorrhaphy with Bard mesh Surgeon: [] [employer] Teacher: [] Remington Type of Anesthesia: . Mac Indication for surgery: [] Patient had both a large indirect hernia and a moderately sized indirect hernia. Findings: Patient brought to the operating room, placed on operative table supine position, after an adequate level of MAC anesthesia was induced, the right groin was prepped and draped in usual sterile fashion using a small right para inguinal incision, this carried down through skin, subcutaneous tissue, Caio's fascia. External oblique fibers were opened their direction with care to isolate and preserve the ilioinguinal nerve throughout the procedure. Spermatic cord was identified and retracted from the field. Exploration of the cord demonstrated a large indirect hernia sac which was reduced. Also a direct hernia sac was demonstrated and reduced. Appropriately sized Bard plug was placed in the indirect defect and sutured inferiorly to the inguinal ligament, and superiorly to the transversalis fascia using interrupted 0 Ethibond suture. Mesh also covered the entire inguinal floor. At completion of procedure, mesh was in good position with no gaps or tension. Wound was irrigated, secured hemostasis, and closed using the following; external oblique fascia was closed using running 2-0 Vicryl suture. Caio's fascia was reapproximated using interrupted 3-0 Vicryl suture. Interrupted inverted deep dermal 3-0 Vicryl sutures followed by running subcuticular 4-0 Vicryl sutures were placed. Steri-Strips and sterile dressings were applied. Sponge, needle, and instrument counts reported correct. Patient tolerated the procedure well and emerged from anesthesia stable condition. Ipsilateral testicle was intrascrotal at completion. EBL minimal Wound was infiltrated at the beginning at the end of the case with 0.5% Marcaine/1% lidocaine both through ilioinguinal nerve block and into the incision directly.
[2024-05-03 15:18] VITALS: BP 111/74; PULSE 66; RESP 18; TEMP 36.5; O2SAT 100
[2024-05-03 15:30] VITALS: BP 117/84; PULSE 66; RESP 18; O2SAT 100
[2024-05-03 15:45] VITALS: BP 117/79; PULSE 59; RESP 18; TEMP 36.3; O2SAT 100
== END 2024-05-03 16:00 | disposition home or self-care (01) ==
PROVIDERS: PCP Nurse Practitioner Family; Visit Provider Surgery
PROC: (CPT 49505; principal; 2024-05-03 15:10)
DX: K40.90 Unilateral inguinal hernia, without obstruction or gangrene, not specified as recurrent (principal); J45.909 Unspecified asthma, uncomplicated; E78.00 Pure hypercholesterolemia, unspecified; G47.33 Obstructive sleep apnea (adult) (pediatric); Z99.89 Dependence on other enabling machines and devices; G89.29 Other chronic pain; M54.41 Lumbago with sciatica, right side; M54.42 Lumbago with sciatica, left side
CPT/HCPCS: 49505; C1781; J0131; J0690; J1100; J1885; J2003; J2250; J2405; J2704; J2795; J3010

== ENCOUNTER → 2024-05-03 11:54 | Outpatient (BNV) | payer BC, SELFPAY | PROVIDERS: PCP Nurse Practitioner Family; Visit Provider Surgery | DX: K40.90 Unilateral inguinal hernia, without obstruction or gangrene, not specified as recurrent (principal) | CPT/HCPCS: 49505 ==

== ENCOUNTER 2024-05-07 09:34 | Outpatient (AMB) | payer BC, SELFPAY ==
--- NOTE | 2024-05-07 09:34 | MHC.OFFVIS ---
Vital Signs 05/07/24 09:36 Height 6 ft 1 in Weight 208 lb 4 oz BMI 27.5 BP 122/86 Blood Pressure Location Lt brachial Position Sitting Pulse 89 Pulse Source Pulse Oximeter Pulse Oximetry (%) 97 Oxygen Delivery Method Room Air Intake Visit Reasons: 1Y ESDRAS Allergies No Known Allergies Allergy (Verified 05/07/24 09:37) HPI Comments Details: 54 year old male here for sleep apnea f/u. Interval Medical History : R. [place] [facility] [facility] [place]. Compliance Report 01/2024- 05/2024 >4 hours 87/90 days with Total usage 7 hours and 12 min Pressures 6 cmH20 Leaks Median 0.8, Max 12.5 with AHI 0.3 He says bedtime is at 10:30pm, gets up at 5-7am, with one bathroom break, he has a 9 year old son with DS, so he gets up to take care of his needs also. Denies headaches, vertigo, balance dizziness, vision changes, nausea. Has good effects with his CPAP use, is compliant. Cleans the mask, changes filters, and equipment as needed. Dad has a history of Parkinsons. His cognition, mood and diet is normal. Denies alcohol use, and smoking. [facility] Medical History Elevated cholesterol Asthma Vaccine counseling Sleep apnea Back disorder Surgical History H/O hernia repair (05/03/24) H/O colonoscopy H/O microdiscectomy H/O vasectomy Family History Mother Asthma High blood pressure Diabetes Cardiovascular disease Maternal Grandmother Mouth cancer Social History Housing: House Are you a primary daycare director to a significant other at home: No Do you presently have visiting nurse or other home services: No Patient Tobacco Use Status: Never used Tobacco e-Cigarette/Vaping Use: Never Used Second Hand Smoke Exposure: No service: No Current occupational status: employed 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 [employer] Cognitive needs: No Hearing needs: Yes Vision needs: No Review of Systems Const All systems reviewed & are unremarkable except as noted in HPI and below Physical Exam Vital Signs: Last Vital Signs Pulse 89 05/07/24 09:36 BP 122/86 05/07/24 09:36 Pulse Ox 97 05/07/24 09:36 Oxygen Delivery Method Room Air 05/07/24 09:36 BMI result Body Mass Index 27.5 Const General: comfortable and no acute distress Nutritional Appearance: average body habitus Orientation/consciousness: patient oriented x3 Eyes Pupils: Equal, round and reactive pupils present Resp Effort & Inspection: normal respiratory effort and able to speak in complete sentences Neuro General: patient oriented x3 and moves all extremities Cranial nerves: Yes CN's II-XII intact bilaterally, Yes Facial sensation intact/muscles of mastication intact, Yes Equal, round and reactive pupils present, Yes Normal accommodation reflex present, Yes Bilaterally intact EOM present, Yes Nystagmus not present, Yes Normal facial strength present, Yes Midline tongue present, Yes Ability to bilaterally rotate head present and Yes Ability to bilaterally elevate shoulders present Cognition (Neuro): normal cognition Gait exam (Neuro): Normal gait present Motor exam (neuro): 5/5 motor strength present throughout, Pronator motor function not present, no tremor noted and Normal motor muscle tone present throughout Deep tendon reflexes (DTR's): Right triceps reflex intensity grade: 2+, Left triceps reflex intensity grade: 2+, Rt Biceps (C5, C6): 2+, Left biceps reflex intensity grade: 2+, Right brachioradialis reflex intensity grade: 2+, Left brachioradialis reflex intensity grade: 2+, Right patellar reflex intensity grade: 2+ and Left patellar reflex intensity grade: 2+ Psych Appearance: grossly normal Mental Status: mental status grossly normal Speech and movement: Normal speech and movement present Results Reviewed Results Reviewed: Compliance Report 01/2024- 05/2024 >4 hours 87/90 days with Total usage 7 hours and 12 min Pressures 6 cmH20 Leaks Median 0.8, Max 12.5 with AHI 0.3 Assessment & Plan Assessment & Plan (1) ESDRAS on CPAP: Code(s): G47.33 - Obstructive sleep apnea (adult) (pediatric) Category: Medical Plan ESDRAS Will continue using CPAP as patient experiences good clinical effects. Changes filters, cleans mask and supplies as needed. F/U with clinic as needed in one year or sooner. Coding Level of Care Code Est Pt Level 3 (21593) Diagnoses ESDRAS on CPAP G47.33 Time Spent (min) 20 Comment Improved
[2024-05-07 09:36] VITALS: BP 122/86; PULSE 89; O2SAT 97; BMI 27.5
== END 2024-05-07 10:21 | disposition home or self-care (01) ==
PROVIDERS: PCP Nurse Practitioner Family; Visit Provider Physician Assistant Medical
DX: G47.33 Obstructive sleep apnea (adult) (pediatric) (principal)
CPT/HCPCS: 99213

== ENCOUNTER 2024-05-14 09:32 | Outpatient (AMB) | payer BC, SELFPAY ==
--- NOTE | 2024-05-14 09:33 | MHC.OFFVIS ---
Intake Visit Reasons: S/P RIH w/mesh Intake Note: Patient here s/p open right inguinal herniorrhaphy with Bard mesh. Reports incision healing well but sleeve machine tender. Patient c/o: sore not able to sleep on that side. No longer taking rx pain meds. 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 He is doing well. Starting a diet. Having regular bowel habits. It is increasing his activity level. He has minimal incisional discomfort. [facility] Medical History Elevated cholesterol Asthma Vaccine counseling Sleep apnea Back disorder Surgical History H/O hernia repair (05/03/24) H/O colonoscopy H/O microdiscectomy H/O vasectomy Family History Mother Asthma High blood pressure Diabetes Cardiovascular disease Maternal Grandmother Mouth cancer Social History Housing: House Are you a primary home care manager to a significant other at home: No Do you presently have visiting nurse or other home services: No Patient Tobacco Use Status: Never used Tobacco e-Cigarette/Vaping Use: Never Used Second Hand Smoke Exposure: No service: No Current occupational status: employed 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 All questions answered. Coding Level of Care Code Global (00799) Diagnoses Status post inguinal hernia repair using synthetic patch Z98.890; Z87.19
== END 2024-05-14 09:56 | disposition home or self-care (01) ==
PROVIDERS: PCP Nurse Practitioner Family; Visit Provider Surgery
DX: Z98.890 Other specified postprocedural states (principal); Z87.19 Personal history of other diseases of the digestive system
CPT/HCPCS: 99024

== ENCOUNTER 2024-07-16 13:13 | Outpatient (AMB) | payer BC, SELFPAY ==
--- NOTE | 2024-07-16 13:17 | MHC.OFFVIS ---
Intake Visit Reasons: Wound check~ small area along incision Intake Note: Patient being seen today as an urgent appointment for wound check. Patient c/o small area along incision that looks like it can open. Please refer to portal message from 07-11-2024. Hx: open right inguinal herniorrhaphy with Bard mesh on 05-03-2024 Revenue Officer Required: No Accompanied by: Self / Same As Patient Allergies No Known Allergies Allergy (Verified 07/16/24 13:21) HPI Comments Details: Patient was for evaluation because he is extruding a suture from mid right inguinal hernia repair. Otherwise doing well. Starting a diet. He has regular bowel habits. He is increasing his activity level. [facility] Medical History Elevated cholesterol Asthma Vaccine counseling Sleep apnea Back disorder Surgical History H/O hernia repair (05/03/24) H/O colonoscopy H/O microdiscectomy H/O vasectomy Family History Mother Asthma High blood pressure Diabetes Cardiovascular disease Maternal Grandmother Mouth cancer Social History Housing: House Are you a primary health care facility administrator to a significant other at home: No Do you presently have visiting nurse or other home services: No Patient Tobacco Use Status: Never used Tobacco e-Cigarette/Vaping Use: Never Used Second Hand Smoke Exposure: No service: No Current occupational status: employed 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 Bacitracin and sterile dressing applied. Remaining incision has good 1st intention healing Assessment & Plan Assessment & Plan (1) Postoperative stitch abscess: Code(s): T81.41XA - Infection following a procedure, superficial incisional surgical site, initial encounter Category: Surgical Plan Patient was been given local instructions including bacitracin with a sterile dressing each day for next few days will otherwise follow-up p.r.n.. All questions answered. Coding Level of Care Code Est Pt Level 3 (23597) Diagnoses Postoperative stitch abscess T81.41XA
== END 2024-07-16 13:25 | disposition home or self-care (01) ==
LOC: HO.HGS 13:14
PROVIDERS: PCP Nurse Practitioner Family; Visit Provider Surgery
DX: T81.41XA Infection following a procedure, superficial incisional surgical site, initial encounter (principal)
CPT/HCPCS: 99024

== ENCOUNTER 2024-10-02 06:46 | Outpatient (REF) | payer BC, SELFPAY ==
--- OUTSIDE RECORDS SUMMARY | 2024-10-02 06:47 | XMS_ITS | Continuity of Care Document ---
Author [place] [facility] [place] [address] [place] [id number] Phone Care Team Providers Care Automotive Artist Name Role Phone Unavailable Unavailable Unavailable Advance [...] Location Reason(s) For Visit Diagnoses Date Provider [address], [id number], tel:[phone] [facility] No Information 2005 No Information [address], [id number], tel:[phone] [facility] vasectomy (chief complaint) No Information 2005 No Information [address], [id number], tel:[phone] [facility] (R) 5th fingernail avulsion (chief complaint) No Information 2004 Sesar Montez. [address] [place] [address], [address], . tel:[phone] Family History Family Member Type Diagnosis Age At Onset No Information Immunizations Vaccine Date Status Comments Td (adult) administered Source: New Imm unization Record Payers Payer name Insurance type Covered libertarian ID Authoriza tion(s) No Information Social History [...]
[2024-10-02 11:15] LABS: Cholesterol 174 mg/dL (<200); HDL Cholesterol 43 mg/dL (>40); LDL Cholesterol Calculated 108 mg/dL (<100); Triglycerides 115 mg/dL (<150)
== END 2024-10-02 06:47 | disposition home or self-care (01) ==
LOC: HO.HMGCLDS 06:46
PROVIDERS: PCP Nurse Practitioner Family; Visit Provider Nurse Practitioner Family
DX: E78.00 Pure hypercholesterolemia, unspecified (principal)
CPT/HCPCS: 36415; 80061

== ENCOUNTER 2024-10-09 12:57 | Outpatient (AMB) | payer BC, SELFPAY ==
--- NOTE | 2024-10-09 13:00 | A.OFFPC_ITS ---
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 He admits to taking atorvastatin as prescribed without adverse reactions. He notes that he has been making healthy lifestyle changes. He offers no complaints and denies acute symptoms at this time. [facility]LY [facility], [facility] Medical History (Updated 10/09/24 @ 13:10 by Katie Peters CNP) Elevated cholesterol Asthma Vaccine counseling Sleep apnea Back disorder Surgical History (Updated 07/16/24 @ 13:34 by Mik Frankel MD) H/O hernia repair (05/03/24) H/O colonoscopy H/O microdiscectomy H/O vasectomy Family History Mother Asthma High blood pressure Diabetes Cardiovascular disease Maternal Grandmother Mouth cancer Social History Housing: House Are you a primary client care specialist to a significant other at home: No Do you presently have visiting nurse or other home services: No Patient Tobacco Use Status: Never used Tobacco e-Cigarette/Vaping Use: Never Used Second Hand Smoke Exposure: No service: No Current occupational status: employed 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 1. Little interest or pleasure in doing things: not at all 2. Feeling down, depressed, or hopeless: not at all 3. Trouble falling or staying asleep, or sleeping too much: not at all 4. Feeling tired or having little energy: not at all 5. Poor appetite or overeating: not at all 6. Feeling bad about yourself - or that you are a failure or have let yourself or your family down: not at all 7. Trouble concentrating on things, such as reading the newspaper or watching television: not at all 8. Moving or speaking so slowly that other people could have noticed. Or the opposite - being so fidgety or restless that you have been moving around a lot more than usual: not at all 9. Thoughts that you would be better off or of hurting yourself in some way: not at all Total score: 0 Depression Screening Interpretation: Negative Depression Screening Done: Yes Source: Developed by Drs. Eleuterio Mason, Namita Morley, Juan Carlos Bradley and colleagues, with an educational yosvany from [employer]. Thrive Questionnaire Date Thrive assessed: 10/02/24 I am a: Patient What is your living situation today?: I have a steady place to live Within the past 12 months, did the food you bought not last and you didn't have the money to get more?: Never true Within the past 12 months, did you worry whether your food would run out before you got money to buy more?: Never true Do you have trouble paying for medicines?: No Do you have trouble getting transportation to medical appointments?: No Do you have trouble paying your heating and electricity bill?: No Do you have trouble taking care of your child, family member or friend?: No Do you have trouble with day-to-day activities such as bathing, preparing meals, shopping, managing finances, etc.?: No Are you currently unemployed and looking for a job?: No Are you interested in more education?: No Please select the resources that you would like help with: None Currently or been in a relationship where the following occur: No concerns reported THRIVE Score: 0 AUDIT C Alcohol Use Questionnaire (AUDIT-C) 1. How often do you have a drink containing alcohol?: Monthly or less 2. How many drinks containing alcohol do you have on a typical day when you are drinking?: 1 or 2 3. How often do you have six or more drinks on one occasion?: Never Total Score: 1 ZEINAB-7 AMB Questionnaire ZEINAB-7 Date ZEINAB - 7 assessed: 04/17/24 Feeling nervous, anxious, or on edge: 0 = Not at all Not being able to stop or control worryin = Not at all Worrying too much about different things: 0 = Not at all Trouble relaxin = Not at all Being so restless that it is hard to sit still: 0 = Not at all Becoming easily annoyed or irritable: 0 = Not at all Feeling afraid as if something awful might happen: 0 = Not at all Total ZEINAB-7 score (0-4 normal; 5-9 mild; 10-14 moderate; 15-21 severe): 0 Source: Developed by Drs. Eleuterio Mason, Namita Morley, Juan Carlos Bradley and colleagues, with an educational yosvany from [employer]. Review of Systems Const Details: Const Denies chills, Denies fatigue, Denies fever(s), Denies headache(s) and Denies weakness ENT Denies dizziness and Denies headache(s) Card Denies chest pain, Denies lightheadedness, Denies dyspnea and Denies other (Pa lpitations) Resp Denies cough, Denies dyspnea, Denies wheezing and Denies other ( shortness of breath) GI Denies abdominal pain, Denies melena, Denies hematochezia, Denies change in bowel habits, Denies dyspepsia and Denies nausea Denies hematuria and Denies dysuria Musc Denies abnormal gait, Denies myalgias, Denies arthralgias, Denies numbness and Denies tingling Skin/Breast Denies rash, Denies unusual bruising and Denies wounds Neuro Denies abnormal gait, Denies dizziness, Denies headache(s), Denies memory loss, Denies numbness, Denies Sensory deficit (Neuro), Denies tingling and Denies weakness Psych Denies anxiety, Denies depression, Denies memory loss Endo Denies cold intolerance, Denies fatigue, Denies heat intolerance, Denies polydipsia and Denies polyuria Aller/Immun Denies wheezing Physical exam (Primary Care) Vital Signs: Last Vital Signs Temp 99.3 F 10/09/24 13:03 Pulse 74 10/09/24 13:03 Resp 16 10/09/24 13:03 BP 124/71 10/09/24 13:03 Pulse Ox 96 10/09/24 13:03 Oxygen Delivery Method Room Air 10/09/24 13:03 BMI result Body Mass Index 28.0 Tobacco/Smoking Status: Tobacco use Status Tobacco use date assessed 10/09/24 10/09/24 13:05 Patient Tobacco Use Status Never used Tobacco 10/09/24 13:01 e-Cigarette/Vaping Use Never Used 10/09/24 13:01 PHQ-9: PHQ-9 Score PHQ-9: Total score 0 10/09/24 13:01 Depression Screening Interpretation: Negative Thrive Assessment: Date of Thrive Assessment Date Thrive assessed 10/02/24 10/09/24 13:01 Currently or been in a relationship where the following occur: No concerns reported Const Other: General: no acute distress and well developed Nutritional Appearance: well nourished Orientation/consciousness: patient oriented x3 HENMT Head: Yes normocephalic and Yes atraumatic Eyes General: appearance normal, both eyes and all related structures Pupils: Equal, round and reactive pupils present EOM: EOMs intact bilaterally Resp Effort & Inspection: normal respiratory effort Auscultation: clear to auscultation bilaterally Cardio Rate: regular rate Rhythm: regular rhythm Heart sounds: S1 normal heart sound present, S2 normal heart sound present, no gallops, no murmurs and no rubs GI Palpation (GI): No Abdominal aortic bruit present, Soft to palpation, nontender, No hepatosplenomegaly present and No Rebound tenderness present Auscultation: normal bowel sounds General: Yes no CVA tenderness Back/Spine/Pelvis Back: no CVA tenderness Cervical Spine: cervical ROM normal and No Cervical spine tenderness Thoracic/Lumbar Spine: thoraco-lumbar ROM normal, No pain with thoraco-lumbar ROM, No thoracic spinal tenderness and No lumbar spinal tenderness Extrem General: Yes normal to inspection, No edema and No calf tenderness Skin General: warm and dry. Normal skin color. Normal skin turgor Neuro General: patient oriented x3, gait normal and no focal neuro deficit Cranial nerves: Yes Equal, round and reactive pupils present Cognition (Neuro): normal cognition Gait exam (Neuro): Normal gait present Sensory Exam: No Sensory deficit (Neuro) Psych Appearance: grossly normal Affect: normal affect Attitude: cooperative Thought process: Normal thought process present Coding Level of Care Code Est Pt Level 3 (51550) Diagnoses Hypercholesterolemia E78.00 Laboratory tests ordered as part of a complete physical exam (CPE) Z00. Assessment & Plan Assessment & Plan (1) Hypercholesterolemia: Code(s): E78.00 - Pure hypercholesterolemia, unspecified Category: Medical Plan: Recent LDL level is slightly elevated, 101. Triglycerides, total cholesterol, and HDL levels are normal. Continue current treatment regimen. Advised to limit foods high in saturated fat and avoid foods high in trans fats. Routine exercise encouraged. Will monitor lipid panel levels every 6-12 months. Follow-up for an extended physical exam on/after 04/17/2025; perform lab work a few days prior. Return sooner with symptoms or concerns. Verbalized understanding and agreed with the treatment plan. (2) Laboratory tests ordered as part of a complete physical exam (CPE): Code(s): Z00. - Encounter for general adult medical examination without abnormal findings Category: Medical Plan: Fasting labs ordered as part of a complete physical exam. Advised to fast for at least 10 hours before getting labs drawn. May drink water Verbalized understanding and agreed with treatment plan. Orders: Orders Complete Blood Count Auto Diff 6 Months Z00.00 - Encounter for general adult medical examination without abnormal findings Comprehensive [place]. Panel Fast 6 Months Z00.00 - Encounter for general adult medical examination without abnormal findings Microalbumin, Random (w Creat) 6 Months Z00.00 - Encounter for general adult medical examination without abnormal findings Vitamin D 25-OH Total 6 Months Z00.00 - Encounter for general adult medical examination without abnormal findings Lipid Panel 6 Months Z00.00 - Encounter for general adult medical examination without abnormal findings TSH reflex Free T4 6 Months Z00.00 - Encounter for general adult medical examination without abnormal findings UA CC w/rflx Micro + Cult 6 Months Z00.00 - Encounter for general adult medical examination without abnormal findings
[2024-10-09 13:03] VITALS: BP 124/71; PULSE 74; RESP 16; TEMP 37.4; O2SAT 96; BMI 28.0
== END 2024-10-09 13:22 | disposition home or self-care (01) ==
LOC: HO.HMCFM 12:57
PROVIDERS: PCP Nurse Practitioner Family; Visit Provider Nurse Practitioner Family
DX: E78.00 Pure hypercholesterolemia, unspecified (principal); Z00.00 Encounter for general adult medical examination without abnormal findings

== ENCOUNTER → 2024-10-09 12:57 | Outpatient (BNVA) | payer BC, SELFPAY | PROVIDERS: PCP Nurse Practitioner Family; Visit Provider Nurse Practitioner Family | DX: Z13.89 Encounter for screening for other disorder (principal) ==

== ENCOUNTER 2024-11-06 19:12 | Emergency (ER) | payer BC, SELFPAY ==
--- NOTE | ~2024-11-06 | XR_ITS ---
CLINICAL HISTORY: chest pain 1 view chest x-ray Comparison: None provided Findings: The lungs are clear. Heart size is normal. No acute fracture. IMPRESSION: 1. No acute findings. This document has been electronically signed by: Lois Alicea MD on 11/06/2024 20:21:14
--- NOTE | 2024-11-06 19:14 | ECG_ITS ---
Test Reason : CHEST PAIN Blood Pressure : */* mmHG Vent. Rate : 82 BPM Atrial Rate : 82 BPM P-R Int : 132 ms QRS Dur : 96 ms QT Int : 374 ms P-R-T Axes : 28 -16 30 degrees QTcB Int : 436 ms Normal sinus rhythm Minimal voltage criteria for LVH, may be normal variant ( R in aVL ) Nonspecific ST abnormality Abnormal ECG No previous ECGs available Referred By: Roque Jarvis Electronically Signed By: Christoph Stern
[2024-11-06 19:25] VITALS: BP 126/85; PULSE 79; RESP 16; TEMP 36.8; O2SAT 96; BMI 25.4
--- NOTE | 2024-11-06 19:28 | ED_ITS ---
HPI - General Adult General Chief complaint: Chest Pain Stated complaint: ? Heart Attack t-1 Time Seen by Provider: 11/06/24 22:50 Source: patient Limitations: no limitations History of Present Illness ED Provider: La Tobin PA-C HPI narrative: 54-year-old male with a history of hyperlipidemia presents with chest pain. Patient states he was at work when he developed left-sided chest discomfort described as indigestion. Episode lasted 10 minutes then resolved. Denies concurrent diaphoresis, nausea, abdominal pain or shortness of breath. Denies recent cough or cold symptoms. Patient states the pain was alleviated with massage of the chest wall. Denies overuse injury, repetitive activity, new heavy lifting that could have precipitated his symptoms. Related Data Previous Rx's ?Medication ?Instructions ?Recorded albuterol sulfate 90 mcg/actuation 2 puff inhalation Q 4-6H PRN 11/29/23 aerosol inhaler shortness of breath or wheez ing #8.5 grams atorvastatin 10 mg tablet 10 mg PO BEDTIME 90 days #90 tabs 10/17/24 Allergies Allergy/AdvReac Type Severity Reaction Status Date / Time No Known Allergies Allergy Verified 11/06/24 19:28 Review of Systems 2 Review of Systems: Yes all other systems are reviewed and are negative Constitutional: Constitutional: Denies fatigue and Denies fever(s) Cardiovascular: Cardiovascular: Reports chest pain and Denies dyspnea Respiratory: Respiratory: Denies cough and Denies dyspnea Gastrointestinal: Gastrointestinal: Denies abdominal pain, Denies nausea and Denies vomiting Endocrine: Endocrine: Denies fatigue PMFSH Past Medical History Attestation statement: The following information was validated with the patient. Medical History (Updated 11/08/24 @ 00:01 by Teresa Butts) Elevated cholesterol Asthma Vaccine counseling Sleep apnea Back disorder Surgical History (Updated 07/16/24 @ 13:34 by Mik Frankel MD) H/O hernia repair (05/03/24) H/O colonoscopy H/O microdiscectomy H/O vasectomy Family History Family History Mother Asthma High blood pressure Diabetes Cardiovascular disease Maternal Grandmother Mouth cancer Social History Social History Housing: House Are you a primary care tech to a significant other at home: No Do you presently have visiting nurse or other home services: No Patient Tobacco Use Status: Never used Tobacco e-Cigarette/Vaping Use: Never Used Second Hand Smoke Exposure: No Advance Directives: No Advance Directives Information Provided: Yes service: No Current occupational status: employed 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 Cognitive needs: No Hearing needs: Yes Vision needs: No Physical Exam ED Vital Signs: Vital Signs - 24 hr 11/06/24 19:25 11/06/24 23:03 11/07/24 00:38 Temperature 98.2 F 98.1 F 98.1 F Pulse Rate 79 82 74 Respiratory Rate 16 19 17 Blood Pressure 126/85 128/78 124/98 H Pulse Oximetry 96 97 99 Oxygen Delivery Method Room Air Room Air Room Air BMI result Body Mass Index 25.4 Const Other: Alert well-appearing Orientation/consciousness: patient oriented x3 Resp Effort & Inspection: normal respiratory effort Cardio Other: Normal peripheral perfusion Skin Other: Warm dry no rash Neuro General: patient oriented x3, gait normal, no focal motor deficits and CN's II- XI intact bilaterally Psych Other: Cooperative Course Course Course Narrative: RME: 54-year-old man presents to ED for chest pain that began since yesterday. Patient denies any l calf pain, pleurisy recent long travel recent surgery coughing up blood. Labs EKG chest x-ray ordered Medical Decision Making Medical Decision Making [facility] Narrative: 54-year-old male with a history of hyperlipidemia presents with chest pain. Patient states he was at work when he developed left-sided chest discomfort described as indigestion. Episode lasted 10 minutes then resolved. Denies concurrent diaphoresis, nausea, abdominal pain or shortness of breath. Denies recent cough or cold symptoms. Patient states the pain was alleviated with massage of the chest wall. Denies overuse injury, repetitive activity, new heavy lifting that could have precipitated his symptoms. Problem: Hyperlipidemia History: Per patient I have considered the following differential diagnoses: Chest wall strain, costochondritis, indigestion, ACS Plan: The patient has some risk factors for coronary artery disease, screening labs including cardiac enzymes EKG were obtained. We will obtain a delta. Based on my exam and history, his symptoms seem most consistent with chest wall pain, given the discomfort was alleviated with massage. I have independently reviewed the following tests: Labs: Normal sinus rhythm, rate 82, no ischemic changes no ectopy QTC 436 EKG: Findings: The lungs are clear. Heart size is normal. No acute fracture. IMPRESSION: 1. No acute findings. Lab Data 11/06/24 20:04 11/06/24 20:04 Labs: Lab Results 11/06/24 11/06/24 Range/Units 20:04 23:22 WBC 8.4 (4.8-10.8) X10*3/uL RBC 4.91 (4.60-5.80) X10*6/uL Hgb 15.1 (14.0-18.0) g/dl Hct 42.5 (42.0-52.0) % MCV 86.6 (80.0-98.0) fL MCH 30.8 (27.0-33.0) pg MCHC 35.5 (31.0-36.0) g/dl RDW 11.7 (11.0-16.0) % Plt Count 208 (160-400) X10*3/uL MPV 10.5 (9.4-12.4) fL Immature Gran % (Auto) 0.1 (0.0-0.4) % Neut % (Auto) 56.0 (45-73) % Lymph % (Auto) 31.5 (20-40) % Rawlins % (Auto) 9.4 (2-11) % Eos % (Auto) 2.8 (0-4) % Baso % (Auto) 0.2 (0-2) % Lymph # (Auto) 2.6 (1.2-4.9) X10*3/uL Rawlins # (Auto) 0.8 (0.1-1.2) X10*3/uL Eos # (Auto) 0.2 (0.0-0.4) X10*3/uL Baso # (Auto) 0.0 (0.0-0.2) X10*3/uL Abs Immat Gran (auto) 0.01 (0.00-0.03) X10*3/uL Absolute Neuts (auto) 4.7 (2.0-8.3) x10*3/uL Absolute Nucleated RBC 0.000 (0.0-0.012) X10*3/uL Nucleated RBC % (auto) 0.0 (0.0-0.2) /100WBC PT 11.5 (10.9-12.4) SEC INR 1.0 (0.9-1.1) APTT 30.8 (26.0-36.8) SEC Sodium 140 (135-145) mmol/L Potassium 4.0 (3.3-5.1) mmol/L Chloride 109 H (96-108) mmol/L Carbon Dioxide 24 (22-29) mmol/L Anion Gap 11 L (12-20) BUN 23 H (9-16) mg/dL Creatinine 0.88 (0.5-1.4) mg/dL Estim Creat Clear Calc 107.1 Estimated GFR > 60 Random Glucose 96 (60-115) mg/dL Calcium 8.9 D (8.4-10.2) mg/dL Total Bilirubin 0.4 (0.0-1.0) mg/dL AST 27 (5-37) U/L ALT 43 H (0-40) U/L Alkaline Phosphatase 63 (39-117) U/L Troponin I High Sens 4.3 4.2 (<3.5-35.0) ng/L B-Natriuretic Peptide 29 (<100) pg/mL Total Protein 6.8 (6.5-8.0) g/dL Albumin 4.5 (3.5-5.0) g/dL Discharge Plan Discharge Clinical Impression: Chest pain Patient Disposition: Home, Self-Care Instructions: Noncardiac Chest Pain (ED) Additional Instructions: All of your screening labs including 2 cardiac enzymes were normal. There were no concerning changes on the EKG. Follow up with your primary care provider, you may have a stress test as an outpatient,. Prescriptions: No Action atorvastatin 10 mg tablet 10 mg PO BEDTIME 90 Days Qty: 90 1RF albuterol sulfate 90 mcg/actuation HFA aerosol inhaler 2 puff inhalation Q4-6H PRN (Reason: shortness of breath or wheezing) Qty: 8.5 3RF Interventions: ED Discharge Assessment Last Done: 11/07/24 00:38 Discharge Date/Time: 11/07/24 00:39 Print Language: Arabic
[2024-11-06 20:11] LABS: MANUAL DIFF FLAG NO
[2024-11-06 20:14] LABS: Hematocrit 42.5 % (42.0-52.0); Hemoglobin 15.1 g/dl (14.0-18.0); Imm Gran Abs Auto 0.01 X10*3/uL (0.00-0.03); Imm Gran Pct Auto 0.1 % (0.0-0.4); Lymphocytes Absolute Auto 2.6 X10*3/uL (1.2-4.9); Mean Corpuscular HGB Conc 35.5 g/dl (31.0-36.0); Mean Corpuscular Hemoglobin 30.8 pg (27.0-33.0); Mean Corpuscular Volume 86.6 fL (80.0-98.0); NRBC Abs Auto 0.000 X10*3/uL (0.0-0.012); NRBC Pct Auto 0.0 /100WBC (0.0-0.2); Platelet Count 208 X10*3/uL (160-400); Red Blood Count 4.91 X10*6/uL (4.60-5.80); White Blood Count 8.4 X10*3/uL (4.8-10.8)
[2024-11-06 20:27] LABS: Alanine Aminotransferase 43 U/L (0-40); Albumin Level 4.5 g/dL (3.5-5.0); Alkaline Phosphatase 63 U/L (39-117); Anion Gap 11 (12-20); Aspartate Amino Transferase 27 U/L (5-37); Blood Urea Nitrogen 23 mg/dL (9-16); Calcium 8.9 mg/dL (8.4-10.2); Carbon Dioxide 24 mmol/L (22-29); Chloride 109 mmol/L (96-108); Creatinine Clr Calc Pharmacy 107.1; Estimated Glomerular Filt Rate > 60; Potassium 4.0 mmol/L (3.3-5.1); Sodium 140 mmol/L (135-145); Total Protein 6.8 g/dL (6.5-8.0)
[2024-11-06 20:29] LABS: INTERNATIONAL NORM RATIO 1.0 (0.9-1.1); Prothrombin Time 11.5 SEC (10.9-12.4)
[2024-11-06 20:32] LABS: B Type Natriuretic Peptide 29 pg/mL (<100); Partial Thromboplastin Time 30.8 SEC (26.0-36.8)
[2024-11-06 20:33] LABS: Troponin-I High Sensitivity 4.3 ng/L (<3.5-35.0)
[2024-11-06 23:03] VITALS: BP 128/78; PULSE 82; RESP 19; TEMP 36.7; O2SAT 97
[2024-11-06 23:51] LABS: Troponin-I High Sensitivity 4.2 ng/L (<3.5-35.0)
[2024-11-07 00:38] VITALS: BP 124/98; PULSE 74; RESP 17; TEMP 36.7; O2SAT 99
== END 2024-11-07 00:39 | disposition home or self-care (01) ==
PROVIDERS: Physician Assistant; Physician Assistant Medical; Emergency Provider Emergency Medicine; PCP Nurse Practitioner Family
DX: R07.9 Chest pain, unspecified (principal); E78.5 Hyperlipidemia, unspecified; Z79.02 Long term (current) use of antithrombotics/antiplatelets; Z79.899 Other long term (current) drug therapy
CPT/HCPCS: 36415; 71045; 80053; 83880; 84484; 85025; 85610; 85730; 93005; 99283; 99284

== ENCOUNTER → 2024-11-06 19:14 | Outpatient (BNV) | payer BC, SELFPAY | PROVIDERS: Emergency Provider Emergency Medicine; PCP Nurse Practitioner Family; Visit Provider Internal Medicine Cardiovascular Disease | DX: R94.31 Abnormal electrocardiogram [ECG] [EKG] (principal); R07.89 Other chest pain | CPT/HCPCS: 93010 ==

== ENCOUNTER → 2024-11-06 19:27 | Outpatient (BNV) | payer BC, SELFPAY | PROVIDERS: PCP Nurse Practitioner Family; Visit Provider Radiology Diagnostic Radiology | DX: R07.89 Other chest pain (principal) | CPT/HCPCS: 71045 ==

== ENCOUNTER 2025-01-17 11:07 | Outpatient (REF) | payer BC, SELFPAY ==
--- NOTE | ~2025-01-17 | XR_ITS ---
EXAMINATION: XR CHEST CLINICAL INFORMATION: R06.02 - Shortness of breath COMPARISON: 11/06/2024. TECHNIQUE: 2 views of the chest were obtained. FINDINGS: The cardiac, hilar, and mediastinal contours are normal. The lungs are clear bilaterally. There is no pneumothorax or pleural effusion. There is no focal osseous or soft tissue abnormality. XR/XR chest 2V IMPRESSION: No active pulmonary disease. Electronically signed by: Ramón Sage MD 01/17/2025 11:48 AM EDT
--- OUTSIDE RECORDS SUMMARY | 2025-01-17 13:28 | XMS_ITS | Clinical Summary ---
[place] [address] Care Team Providers Care Broadcast Operations Director Name Role Phone Alessia Chaparro Trina OLIVEIRA Primary Care Provider Allergies No known active allergies Medications ibuprofen (Advil) 200 mg Tablet Take 400 mg by mouth every 6 hours as needed for Pain. Active Immunizations Immunization Administration Dates Next Due Covid-19 Monovalent (Moderna Spikevax) 12yrs+ ([id number]) 08/21/2020,07/25/2020 Social History Tobacco Use Types Packs/Day Years Used Date Smoking Tobacco: Never Smokeless Tobacco: Never Sex and Gender Information Value Date Recorded Sex Assigned at Not on file Legal Sex Male 8:15 AM EDT Gender Identity Not on file Sexual Orientation Not on file Last Filed Vital Signs Vital Sign Reading Time Taken Comments Blood Pressure 122/71 04/10/2021 1:45 PM EST Pulse 78 04/10/2021 1:45 PM EST Temperature 36 C (96.8 F) 04/10/2021 11:48 AM EST Respiratory Rate 24 04/10/2021 1:45 PM EST Oxygen Saturation 97% 04/10/2021 1:45 PM EST Inhaled Oxygen Concentration - - Weight 90.7 kg (200 lb) 04/10/2021 7:15 AM EST Height 185.4 cm (6' 1 ) 04/10/2021 7:15 AM EST Body Mass Index 26.39 04/10/2021 7:15 AM EST Plan of Treatment Health Maintenance Due Date Last Done Comments CT Colonography 1970 Colonoscopy 1969 Colorectal Cancer Screening 1970 FIT DNA 1970 FIT 1970 Sigmoidoscopy (10 year) with FIT yearly 1970 Sigmoidoscopy 1970 HIV screen 1987 Hepatitis C Screening 1987 Lipid Screening 1987 Hepatitis B vaccine (0-59 yr s) and Risk (1) 1988 Tetanus/Diphtheria/Pertussis Vaccines (1 - Tdap) 1988 Pneumoccocal Vaccine: 50+ (1 of 1 - PCV) 2019 Zoster vaccine (1 of 2) 2019 Advance Directive 2024 Covid-19 Vaccine (3 - season) 2024, 07/25/2020 Influenza (Flu) vaccine (1 o f 1 - Influenza standard series) 12/31/2024 Insurance MEDICAID [place] Care Teams Broadcast Operations Director Relationship Specialty Start Date End Date Alessia Chaparro DO PCP - General Family Medicine 10/17/20
== END 2025-01-17 11:08 | disposition home or self-care (01) ==
LOC: HO.HMGCX 11:07
PROVIDERS: PCP Nurse Practitioner Family; Visit Provider Nurse Practitioner Family
DX: R06.02 Shortness of breath (principal); R68.89 Other general symptoms and signs; I49.8 Other specified cardiac arrhythmias
CPT/HCPCS: 71046; 93005

== ENCOUNTER → 2025-01-17 11:10 | Outpatient (BNV) | payer BC, SELFPAY | PROVIDERS: PCP Nurse Practitioner Family; Visit Provider Radiology Diagnostic Radiology | DX: R06.02 Shortness of breath (principal) | CPT/HCPCS: 71046 ==

== ENCOUNTER 2025-01-17 11:45 | Outpatient (AMB) | payer BC, SELFPAY ==
--- NOTE | 2025-01-17 11:48 | A.OFFPC_ITS ---
Vital Signs 01/17/25 11:52 Height 6 ft 1 in Weight 207 lb 4 oz BMI 27.3 BP 134/72 Blood Pressure Location Lt brachial Position Sitting Respiration 12 Pulse 73 Pulse Source Pulse Oximeter Temp 98.4 F Temp Source Oral Pulse Oximetry (%) 96 Oxygen Delivery Method Room Air Intake Visit Reasons: Low HR, pt feeling weak, refuses ER Intake Note: Patient c/o sob, coughing, low heart rate yesterday. 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 Allergies No Known Allergies Allergy (Verified 01/17/25 12:18) Medication List - Last Reconciled 01/17/25 by Sherrie Harley, DEPUTY ATTORNEY GENERAL- albuterol sulfate 90 mcg/actuation 2 puffs inhalation Q4-6H PRN atorvastatin 10 mg PO BEDTIME 90 days Tobacco use date assessed: 01/17/25 Dental Screening Dental Screen Date: 01/17/25 Did you have a dental visit in the last 12 months?: Yes Did you have a dental problem in the last 6 months where you did not have access to dental care?: No Was dental information given to patient?: Patient has dentist HPI HPI Comments History of Present Illness Details History of Present Illness The patient is a 54-year-old male presenting with complaints of feeling weak and shortness of breath. sx started over the weekend w/ fever, lethargy and SOB. Fever is gone but SOB cont. yesterday noted his HR in the 50's which is low for him. He is also having heartburn, taking mylanta. usually bikes to work and has not been able to d/t SOB. He denies chest pain. Did go to ED for chest pain in October. Work up reviewed. EKG showed SR with marked sinus arrhythmia and PVCs. He is using ELIANA 2-3 times per day along w anti-tussive OTC. He was advised to go ED by triage nurse yesterday but declined. CXR done today WNL. See below. Review of Systems - Respiratory: Reports shortness of helga th, cough, and history of asthma. - Cardiovascular: Reports low heart rate and sinus arrhythmia. Denies chest pain. - Constitutional: Reports feeling weak a nd tired. - ENT: Reports no significant throat iss ues. - Gastrointestinal: Reports heartburn, m anaged with antacids. Physical Exam General: Well developed, well nourished, appears stated age, but reports feeling weak and tired. No acute distress noted. Head: Normocephalic, atraumatic. Eyes: Pupils are equal, round and reactive to light and accommodation. C onjunctivae are clear. Ears: TM intact and clear bilat Nose: scant d/c, turbinates wnl, no sinus tenderness Pharynx: normal, no ac adenopathy Lungs: Clear to auscultation bilaterally. No rales, rhonchi or wheeze noted. Good air flow in all bain. Occassional cough w/o distress. Heart: SRegular rate and rhythm. No murmurs, click, rubs or gallops are noted. Pulses: Peripheral pulses are equal and palpable bilaterally. Extremities: No clubbing, cyanosis nor edema is noted. Psych: Mood and affect appropriate Results - Tests: EKG showing sinus rhythm with o ccasional PVCs and sinus arrhythmia. - Imaging: Chest X-ray showing clear savanna gs, no signs of pneumonia. Discussion Notes I discussed the patient's symptoms and potential that the feeling of weakness and shortness of breath could be related to the recent sinus arrhythmia and PVC observations on the EKG, although these findings can also be incidental and/or related to uptic in ELIANA use. We reviewed the past medical history of asthma, exacerbated by previous COVID infections, contributing to respiratory symptoms. A swab for viral pathogens including flu and COVID was obtained to rule out acute infections. I explained that while the chest X-ray showed no signs of pneumonia, the symptoms and the changes in heart rate need to be evaluated further, with a cardiac workup. I recommended a follow-up with Dr. Peters to review progress and potential cardiac implications. I informed the patient about the anticipated timeline for further diagnostic testing and emphasized using the patient portal for efficient communication of results and follow-up plans. I advised on returning if symptoms worsen or new symptoms develop, and we discussed follow-up for closer examination of the patient's cardiac status. Patient was given time to ask questions. All questions were answered to their satisfaction. Assessment and Plan 1. SOB - Continue inhaler use, sparingly, monit or symptoms. - Viral swab obtained and pending; resul ts will be sent to portal once avail. 2. Sinus Arrhythmia/Premature Ventricula r Contractions (PVCs) - Evaluate further, schedule cardiac fol low-up. - Stress test and echo ordered; close fu with PCP ED edu provided Patient Instructions - Use your inhaler as prescribed. - Monitor your symptoms. If they worsen or new symptoms appear, seek medical attention. - Use the patient portal for quick updat es on your test results. Consent Patient was informed and verbally consented to the use of an ambient scribe for clinic note documentation during this visit. Total time spent caring for the patient today was 40 minutes. This includes time spent before the visit reviewing the chart, time spent during the visit, and time spent after the visit on documentation, reviewing laboratory results, diagnostic imaging, medications, performing a medically necessary evaluation, counseling on diagnoses, care coordination, ordering appropriate tests, ordering appropriate medications, review of tests performed by other providers, reporting test results with the patient, communication with other healthcare providers. [facility] Medical History (Updated 01/17/25 @ 12:34 by Sherrie Harley [facility]) Asthma Back disorder Elevated cholesterol Sleep apnea Vaccine counseling Surgical History (Updated 07/16/24 @ 13:34 by Mik Frankel MD) H/O colonoscopy H/O hernia repair (05/03/24) H/O microdiscectomy H/O vasectomy Family History Mother Asthma High blood pressure Diabetes Cardiovascular disease Maternal Grandmother Mouth cancer Social History Housing: House Are you a primary childcare center director to a significant other at home: No Do you presently have visiting nurse or other home services: No Patient Tobacco Use Status: Never used Tobacco e-Cigarette/Vaping Use: Never Used Second Hand Smoke Exposure: No service: No Current occupational status: employed 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 Cognitive needs: No Hearing needs: Yes Vision needs: No Questionnaire Thrive Questionnaire Date Thrive assessed: 10/02/24 I am a: Patient What is your living situation today?: I have a steady place to live Within the past 12 months, did the food you bought not last and you didn't have the money to get more?: Never true Within the past 12 months, did you worry whether your food would run out before you got money to buy more?: Never true Do you have trouble paying for medicines?: No Do you have trouble getting transportation to medical appointments?: No Do you have trouble paying your heating and electricity bill?: No Do you have trouble taking care of your child, family member or friend?: No Do you have trouble with day-to-day activities such as bathing, preparing meals, shopping, managing finances, etc.?: No Are you currently unemployed and looking for a job?: No Are you interested in more education?: No Please select the resources that you would like help with: None Currently or been in a relationship where the following occur: No concerns reported THRIVE Score: 0 ZEINAB-7 AMB Questionnaire ZEINAB-7 Date ZEINAB - 7 assessed: 04/17/24 Source: Developed by Drs. Eleuterio Mason, Namita Morley, Juan Carlos Bradley and colleagues, with an educational yosvany from [email or web address]. Physical exam (Primary Care) Vital Signs: Last Vital Signs Temp 98.4 F 01/17/25 11:52 Pulse 73 01/17/25 11:52 Resp 12 01/17/25 11:52 BP 134/72 01/17/25 11:52 Pulse Ox 96 01/17/25 11:52 Oxygen Delivery Method Room Air 01/17/25 11:52 BMI result Body Mass Index 27.3 Tobacco/Smoking Status: Tobacco use Status Tobacco use date assessed 01/17/25 01/17/25 11:54 Patient Tobacco Use Status Never used Tobacco 01/17/25 11:54 e-Cigarette/Vaping Use Never Used 01/17/25 11:54 Thrive Assessment: Date of Thrive Assessment Date Thrive assessed 10/02/24 01/17/25 11:54 Currently or been in a relationship where the following occur: No concerns reported Office Procedures EKG 78504-[id number], Complete Results Reviewed Results Reviewed: [facility] Adult [facility] [place] [address] XRay Report Signed Patient: Isiah Mark MR#: [id number] : 1970 Acct:[id number] Age/Sex: 54 / M ADM Date: 01/17/25 Loc: HO.HMGCX Attending Dr: Sherrie HIRSCH Ordering Physician: Sherrie Harley Date of Service: 01/17/25 Procedure(s): XR chest 2V Accession Number(s): [id number] cc: Sherrie Harley DEPUTY ATTORNEY GENERAL-; Katie Peters FASHION MERCHANDISER~ Reason for Exam: R06.02 - Shortness of breath EXAMINATION: XR CHEST CLINICAL INFORMATION: R06.02 - Shortness of breath COMPARISON: 11/06/2024. TECHNIQUE: 2 views of the chest were obtained. FINDINGS: The cardiac, hilar, and mediastinal contours are normal. The lungs are clear bilaterally. There is no pneumothorax or pleural effusion. There is no focal osseous or soft tissue abnormality. XR/XR chest 2V IMPRESSION: No active pulmonary disease. Electronically signed by: Ramón Sage MD 01/17/2025 11:48 AM EDT RP Dictated By: Ramón Sage MD Coding Level of Care Code Est Pt Level 5 (56462) Complex EM visit Add On G2211 Diagnoses Flu-like symptoms R68.89 SOB (shortness of breath) R06.02 Sinus arrhythmia seen on electrocardiogram I49.8 CPT Codes EKG - CPT: 12950-[id number], Complete ([id number]) Assessment & Plan Assessment & Plan (1) Flu-like symptoms: Code(s): R68.89 - Other general symptoms and signs Category: Medical (2) SOB (shortness of breath): Code(s): R06.02 - Shortness of breath Category: Medical (3) Sinus arrhythmia seen on electrocardiogram: Code(s): I49.8 - Other specified cardiac arrhythmias Category: Medical Plan . Orders: Orders XR chest 2V Today R06.02 - Shortness of breath Resp Pathogen Panel - [facility] Today R68.89 - Other general symptoms and signs NM cardiolite stress test Today E78.00 - Pure hypercholesterolemia, unspecified, I49.8 - Other specified cardiac arrhythmias, R06.02 - Shortness of breath CA stress test Today E78.00 - Pure hypercholesterolemia, unspecified, I49.8 - Other specified cardiac arrhythmias, R06.02 - Shortness of breath CA echo transthoracic complete Today E78.00 - Pure hypercholesterolemia, unspecified, I49.8 - Other specified cardiac arrhythmias, R06.02 - Shortness of breath
[2025-01-17 11:52] VITALS: BP 134/72; PULSE 73; RESP 12; TEMP 36.9; O2SAT 96; BMI 27.3
== END 2025-01-17 12:34 | disposition home or self-care (01) ==
LOC: HO.HMCFM 11:46
PROVIDERS: PCP Nurse Practitioner Family; Visit Provider Nurse Practitioner Family
DX: R68.89 Other general symptoms and signs (principal); R06.02 Shortness of breath; I49.8 Other specified cardiac arrhythmias

== ENCOUNTER 2025-01-17 12:31 | Outpatient (REF) | payer BC, SELFPAY ==
[2025-01-18 08:47] LABS: Chlamydia pneumoniae PCR Not Detected (Not Detect.); Coronavirus 229E PCR Not Detected (Not Detect.); Coronavirus HKU1 PCR Not Detected (Not Detect.); Coronavirus NL63 PCR Not Detected (Not Detect.); Coronavirus OC43 PCR Not Detected (Not Detect.); RSV PCR Not Detected (Not Detect.); Rhino/Enterovirus PCR Detected (Not Detect.)
[2025-01-18 10:04] LABS: Influenza A H1 PCR Not Detected (Not Detect.); Influenza A H1-2009 PCR Not Detected (Not Detect.); Influenza A H3 PCR Not Detected (Not Detect.); SARS-CoV-2 PCR Not Detected (Not Detect.)
== END 2025-01-17 12:32 | disposition home or self-care (01) ==
LOC: HO.LAB 12:31
PROVIDERS: Visit Provider Nurse Practitioner Family
DX: R68.89 Other general symptoms and signs (principal)
CPT/HCPCS: 87633

== ENCOUNTER 2025-01-25 15:06 | Outpatient (AMB) | payer BC, SELFPAY ==
--- OUTSIDE RECORDS SUMMARY | 2005-09-16 05:31 | XMS_ITS | Continuity of Care Document ---
Author Organization [facility] Address [address] [place] [phone] Phone Care Team Providers Care Otr Driver Name Role Phone Unavailable Unavailable Unavailable Advance Directives Directive Yes / No Effective Date File Name Resuscitation Not Answered N/A N/A Life Support Not Answered N/A N/A Intubation Not Answered N/A N/A Antibiotics Not Answered N/A N/A IV Fluid Support Not Answered N/A N/A Tube Feed Not Answered N/A N/A Other Directive N/A N/A WARNING:The information contained in this section is historical and is provided for information only and does not constitute a legal document or any assurance that the information is still accurate. Please verify the information with the yost of the legal document before using it for clinical purposes. Encounters Encounter Description Practice Location Reason(s) For Visit Diagnoses Date Provider [facility], [address] [place] [address], [id number], tel:[phone] [facility] No Information 2005 [address], [id number], tel:[phone] [facility] vasectomy (chief complaint) No Information [address], [id number], tel:[phone] [facility] (R) 5th fingernail avulsion (chief complaint) No Information 2004 Sesar Montez. [address] [place] [address], [id number], . tel:[phone] Family History Family Member Type Diagnosis Age At Onset No Information Immunizations Vaccine Date Status Comments Td (adult) administered Source: New Imm unization Record Payers Payer name Insurance type Covered democrat ID Authoriza tion(s) No Information Social History Type Description Quantity Date Captured Comments Alcohol Use Details Unknown Caffeine Use Details Unknown Tobacco Use Status No Information Smoking Status No Information Sex Male Chief Complaint And Reason For Visit No Information History Of Present Illness Encounter Date Complaint History Of Prese nt Illness No Information Instructions Date Instruction Additional Infor mation No Information Assessments Type Assessment Date No Information
--- NOTE | 2025-01-25 15:11 | A.OFFPC_ITS ---
Vital Signs 01/25/25 15:43 Height 6 ft 1 in Weight 206 lb 5 oz BMI 27.2 BP 126/80 Blood Pressure Location Rt brachial Position Sitting Respiration 20 Pulse 76 Pulse Source Pulse Oximeter Temp 98.5 F Temp Source Oral Pulse Oximetry (%) 96 Oxygen Delivery Method Room Air Intake Visit Reasons: Shortness of Breath Intake Note: patient here for c/o shortness of breath Medical Investigator Required: No Allergies No Known Allergies Allergy (Verified 01/25/25 15:47) Tobacco use date assessed: 01/25/25 Dental Screening Dental Screen Date: 01/25/25 Did you have a dental visit in the last 12 months?: Yes Did you have a dental problem in the last 6 months where you did not have access to dental care?: No Was dental information given to patient?: Patient has dentist HPI HPI Comments History of Present Illness Details 54-year-old male presents with persisten t SOB at rest and productive cough with occasional phlegm for the past 3 weeks. He does not know the color of the plegm. He has been unable to inhale fully, worst with climbing stairs. His Son had respiratory symptoms before the onset of the patient's symptoms and was hospitalized in the ICU for 3-5 days days with pneumonia. Patient was evaluated by another provider in this office a week ago; Chest xray was unrevealing and EKG revealed NSR with PVCs; positive for rhino virus he was referred to [facility] and has an appointment in March. His symptoms have been unchanged since his last visit for with the provider at this office. He has been taking DayQuil with relief of the cough. He had COVID-19 symptoms between 2018 and 2019 and tested positive for COVID in 2020. He experienced SOB after COVID infection and his symptoms significantly improved and was able to resumed normal breathing after 3 years. [facility] Medical History (Updated 01/25/25 @ 15:47 by Katie Peters CNP) Elevated cholesterol Asthma Vaccine counseling Sleep apnea Back disorder Surgical History (Updated 07/16/24 @ 13:34 by Mik Frankel MD) H/O hernia repair (05/03/24) H/O colonoscopy H/O microdiscectomy H/O vasectomy Family History Mother Asthma High blood pressure Diabetes Cardiovascular disease Maternal Grandmother Mouth cancer Social History Housing: House Are you a primary child care center assistant director to a significant other at home: No Do you presently have visiting nurse or other home services: No Patient Tobacco Use Status: Never used Tobacco e-Cigarette/Vaping Use: Never Used Second Hand Smoke Exposure: No service: No Current occupational status: employed 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 Cognitive needs: No Hearing needs: Yes Vision needs: No Questionnaire Thrive Questionnaire Date Thrive assessed: 10/02/24 I am a: Patient What is your living situation today?: I have a steady place to live Within the past 12 months, did the food you bought not last and you didn't have the money to get more?: Never true Within the past 12 months, did you worry whether your food would run out before you got money to buy more?: Never true Do you have trouble paying for medicines?: No Do you have trouble getting transportation to medical appointments?: No Do you have trouble paying your heating and electricity bill?: No Do you have trouble taking care of your child, family member or friend?: No Do you have trouble with day-to-day activities such as bathing, preparing meals, shopping, managing finances, etc.?: No Are you currently unemployed and looking for a job?: No Are you interested in more education?: No Please select the resources that you would like help with: None Currently or been in a relationship where the following occur: No concerns reported THRIVE Score: 0 ZEINAB-7 AMB Questionnaire ZEINAB-7 Date ZEINAB - 7 assessed: 04/17/24 Source: Developed by Drs. Eleuterio Mason, Namita Morley, Juan Carlos Bradley and colleagues, with an educational yosvany from [employer]. Review of Systems Const Details: Const Denies chills, Denies fatigue, Denies fever(s), Denies headache(s) and Denies weakness ENT Denies dizziness and Denies headache(s) Card Denies chest pain, Denies lightheadedness, Denies dyspnea and Denies other (Palpitations) Resp Reports SOB, Reports cough, Denies dyspnea, Denies wheezing GI Denies abdominal pain, Denies melena, Denies hematochezia, Denies change in bowel habits, Denies dyspepsia and Denies nausea Denies hematuria and Denies dysuria Musc Denies abnormal gait, Denies myalgias, Denies arthralgias, Denies numbness and Denies tingling Skin/Breast Denies rash, Denies unusual bruising and Denies wounds Neuro Denies abnormal gait, Denies dizziness, Denies headache(s), Denies memory loss, Denies numbness, Denies Sensory deficit (Neuro), Denies tingling and Denies weakness Psych Denies anxiety, Denies depression, Denies memory loss Endo Denies cold intolerance, Denies fatigue, Denies heat intolerance, Denies polydipsia and Denies polyuria Aller/Immun Denies wheezing Physical exam (Primary Care) Tobacco/Smoking Status: Tobacco use Status Tobacco use date assessed 01/17/25 01/25/25 15:11 Patient Tobacco Use Status Never used Tobacco 01/25/25 15:11 e-Cigarette/Vaping Use Never Used 01/25/25 15:11 Thrive Assessment: Date of Thrive Assessment Date Thrive assessed 10/02/24 01/25/25 15:11 Currently or been in a relationship where the following occur: No concerns reported Const Other: General: no acute distress and well developed Nutritional Appearance: well nourished Orientation/consciousness: patient oriented x3 HENMT Head: Yes normocephalic and Yes atraumatic Eyes General: appearance normal, both eyes and all related structures Pupils: Equal, round and reactive pupils present EOM: EOMs intact bilaterally Resp Effort & Inspection: normal respiratory effort Auscultation: clear to auscultation bilaterally Cardio Rate: regular rate Rhythm: regular rhythm Heart sounds: S1 normal heart sound present, S2 normal heart sound present, no gallops, no murmurs and no rubs GI Palpation (GI): No Abdominal aortic bruit present, Soft to palpation, nontender, No hepatosplenomegaly present and No Rebound tenderness present Auscultation: normal bowel sounds General: Yes no CVA tenderness Back/Spine/Pelvis Back: no CVA tenderness Cervical Spine: cervical ROM normal and No Cervical spine tenderness Thoracic/Lumbar Spine: thoraco-lumbar ROM normal, No pain with thoraco-lumbar ROM, No thoracic spinal tenderness and No lumbar spinal tenderness Extrem General: Yes normal to inspection, No edema and No calf tenderness Skin General: warm and dry. Normal skin color. Normal skin turgor Neuro General: patient oriented x3, gait normal and no focal neuro deficit Cranial nerves: Yes Equal, round and reactive pupils present Cognition (Neuro): normal cognition Gait exam (Neuro): Normal gait present Sensory Exam: No Sensory deficit (Neuro) Psych Appearance: grossly normal Affect: normal affect Attitude: cooperative Thought process: Normal thought process present Coding Level of Care Code Est Pt Level 4 (66980) Diagnoses SOB (shortness of breath) R06.02 Cough R05.9 Assessment & Plan Assessment & Plan (1) SOB (shortness of breath): Code(s): R06.02 - Shortness of breath Category: Medical Plan: 54-year-old male presents with persistent SOB at rest and productive cough with occasional phlegm for the past 3 weeks. He does not know the color of the plegm. He has been unable to inhale fully, worst with climbing stairs. His Son had respiratory symptoms before the onset of the patient's symptoms and was hospitalized in the ICU for 3-5 days days with pneumonia. Patient was evaluated by another provider in this office a week ago; Chest xray was unrevealing and E KG revealed NSR with PVCs; positive for rhino virus he was referred to [facility] and has an appointment in March. His symptoms have been unchanged since his last visit for with the provider at this office. He has been taking DayQuil with relief of the cough. He had COVID-19 symptoms between 2018 and 2019 and tested positive for COVID in 2020. He experienced SOB after COVID infection and his symptoms significantly improved and was able to resumed normal breathing after 3 years. Lung sounds clear and equal bilaterally. Likely allergies. Cetirizine and benzonatate as prescribed. Albuterol inhaler as needed. Follow-up with cardiology as plan. Return with worsening or new symptoms. Verbalized understanding and agreed with the plan. (2) Cough: Code(s): R05.9 - Cough, unspecified Category: Medical Plan: Plan as above. Medications: New cetirizine 10 mg PO DAILY 30 tabs 0RF 30 days benzonatate 100 mg PO BID PRN 10 caps 0RF cough 5 days
--- OUTSIDE RECORDS SUMMARY | 2025-01-25 15:42 | XMS_ITS | Clinical Summary ---
[place] [address] Care Team Providers Care Ammonium Nitrate Crystallizer Name Role Phone Alessia Chaparro Trina OLIVEIRA Primary Care Provider Allergies No known active allergies Medications ibuprofen (Advil) 200 mg Tablet Take 400 mg by mouth every 6 hours as needed for Pain. Active Immunizations Immunization Administration Dates Next Due Covid-19 Monovalent (Moderna Spikevax) 12yrs+ ([id number]) 08/21/2020,07/25/2020 Social History Tobacco Use Types Packs/Day [...] series) 12/31/2024 Insurance MEDICAID [place] Care Teams Ammonium Nitrate Crystallizer Relationship Specialty Start Date End Date Alessia Chaparro DO PCP - General Family Medicine 10/17/20
[2025-01-25 15:43] VITALS: BP 126/80; PULSE 76; RESP 20; TEMP 36.9; O2SAT 96; BMI 27.2
== END 2025-01-25 15:48 | disposition home or self-care (01) ==
LOC: HO.HMCFM 15:07
PROVIDERS: PCP Nurse Practitioner Family; Visit Provider Nurse Practitioner Family
DX: R06.02 Shortness of breath (principal); R05.9 Cough, unspecified

== ENCOUNTER → 2025-03-08 07:46 | Outpatient (REF) | payer BC, SELFPAY ==
--- NOTE | ~2025-03-08 | NM_ITS ---
EXERCISE MYOCARDIAL PERFUSION STUDY INDICATION: Shortness of breath to evaluate for myocardial ischemia TECHNIQUE: The patient was brought in for an exercise perfusion study on 03/08/2025. Patient performed exercise as per Mikhail protocol and was injected 30 mCi of sestamibi once target heart rate was achieved. Images were obtained using the SPECT gamma camera interlaced with the gating device. Images were obtained in supine and prone position. Resting perfusion study was performed on 03/13/2025. Patient was administered 30 mCi of sestamibi intravenously at rest. Images were then obtained in supine position. Images were processed with the software and compared side to side in short axis, horizontal long axis and vertical long axis views. FINDINGS: Raw images were reviewed The stress perfusion study showed images supine position showed large area of mildly to moderately reduced uptake in the inferior, inferoseptal and chest and inferolateral wall of the LV myocardium. Images in prone position show mildly reduced uptake in the inferior wall of the LV myocardium. The gated study due to frequent ectopy. LV cavity is mildly to moderately dilated in size. Resting study shows images in supine position show improved uptake in the inferior wall of the LV myocardium. Gating at rest reveals normal systolic wall motion with ejection fraction at 73%. The findings are consistent with reversible defect suggestive of ischemia in the inferoseptal, inferior wall in the RCA distribution. NM/NM cardiolite stress test IMPRESSION: 1. Myocardial perfusion imaging study shows RCA territory ischemia. 2. Gated LVEF is 73% at rest. 3. Transient ischemic dilatation present. EKG revealed borderline positive for ischemia. Electronically signed by: Miguel Ferrari MD 03/14/2025 03:28 PM [facility]
--- NOTE | 2025-03-08 07:48 | CA_ITS ---
Acquisition Time: 2025-03-08 09:10:25 Total Exercise Time: 00:10:17 Test Indications: Dyspnea,Abnormal ECG/PVC'S Medications: ALBUTEROL ATORVASTATIN BENZONATATE CETIRIZINE Protocol: RAMON Max HR: 122 BPM 73% of Pred: 165 BPM Max BP: 196/92 mmHG Max Work Load: 11.7 METS Exercise stress test with exercise 10 mins 17 secs of Ramon Protocol, acheiving 75% MPHR, with reports of SOB, no chest pain, with frequnt PACs and PVCs- brief atrial runs and rare ventricular couplets, with normotenisve reponse to exercise. With borderline EKG changes at achieved workload. In recovery, bretahing slowly improved to baseline. Will request Cardiology Referral from PCP. Nuclear images pending. Test reviewed with Dr. Stern. Referred By: Katie Peters Electronically Signed By: Maxime Paige
--- NOTE | 2025-03-08 07:48 | CA_ITS ---
Transthoracic Echocardiogram Patient (Last, First, Middle): Isiah Mark, Gender: M Date of : 1970 Age: 54 Procedure Date: 03/08/2025 Procedure Type: Transthoracic Echocardiogram Location: OP Height: 185.42 cm Weight: 92.99 kg BSA: 2.17 m2 Heart Rate: bpm BP: 128 / 82 mmHg Fiberglass Grinder: TO Referring MD: Sherrie Harley [facility] Air Quality Consultant: Miguel Ferrari MD Symptoms: R06.02 - Shortness of breath Study Quality: Adequate w contrast ECG Rhythm: Sinus Conclusions: - 1. Low normal LV ejection fraction 50-55% with moderate asymmetric septal hypertrophy with impaired relaxation filling pattern 2. Mildly dilated right-sided chambers with normal RV systolic function 3. Mildly dilated left atrium 4. Mild mitral regurgitation 5. Normal RV systolic pressure 6. Upper limits of normal ascending aortic size 7. No pericardial effusion Findings Procedure Information Contrast agent, definity, is being given per protocol without apparent complications. Left Ventricle Normal left ventricular cavity size. There is normal left ventricular wall thickness. The left ventricular systolic function is low normal. The visually estimated ejection fraction is between 50-55%. There is no dynamic left ventricular outflow tract obstruction. There is systolic anterior motion of the chordae of the mitral valve. Spectral Doppler is indicative of an impaired relaxation filling pattern. E/E prime ratio is <8, consistent with normal filling pressures. There is moderate septal asymmetric hypertrophy. Right Ventricle Mildly increased right ventricular cavity size. There is normal right ventricular systolic function. Atria Mild biatrial enlargement. There is no evidence of interatrial shunt. Aortic Valve Normal aortic valve structure and function. There is no aortic valve stenosis. There is no aortic valve regurgitation. Mitral Valve Normal mitral valve structure and function. There is mild mitral valve regurgitation. There is no mitral valve stenosis. Pulmonic Valve The pulmonic valve is likely normal. There is trace pulmonic valve regurgitation. Tricuspid Valve Normal tricuspid valve structure. There is trace tricuspid valve regurgitation. The right ventricular systolic pressure is normal. The right ventricular systolic pressure is 25 mmHg. Normal right atrial pressure. There is no evidence of pulmonary hypertension. Great Vessels All visible segments of the aorta are normal in size. The pulmonary artery was not well visualized. There is no dilatation of the ascending aorta measuring 3.60 cm. Venous The inferior vena cava is normal in size and collapses greater than 50% with inspiration. Pericardium/Pleural There is no evidence of pericardial effusion. Prior Study Comparison No prior study available for comparison. Measurements 2D Linear Measurements IVSd: 1.10 0.6-0.9/0.6-1.0 cm LVIDd: 5.54 3.9-5.3/4.2-5.9 cm LVIDd Index: 2.55 2.4-3.2/2.2-3.1 cm/m2 LVIDs: 4.10 2.0-3.6 cm LVPWd: 1.00 0.7-1.1 cm LV Mass: 286.95 67-162/88-224 g LV Mass Index: 132.23 43-95/49-115 g/m2 LVOT Diam: 2.60 3.0+(-)1.3 cm 2D Systolic Function EF 4C: 52.40 >55% EF 2C: 48.10 >55% EF BiP: 50.50 >55% Mitral Valve MV Pk E: 0.72 MV PK A: 0.36 MV Decel Time: 184.00 E/A: 2.00 E'Lateral: 10.50 E'Medial: 7.56 E/E' Med: 9.50 E/E' Lat: 6.90 PHT: 54.00 MVA PHT: 4.07 Decel [place]: 3.92 Aortic Valve AoV Pk Peter: 1.06 AoV Mn Peter: 0.76 AoV VTI: 0.21 AoV Pk Grad: 4.00 Aov Mn Grad: 3.00 BECKY Cont.VTI: 4.96 LVOT LVOT Pk Peter: 1.02 LVOT Mn Peter: 0.73 LVOT VTI: 0.20 LVOT Pk Grad: 4.00 LVOT Mn Grad: 2.00 LVOT Diam: 2.60 LVOT Area: 5.31 Diastolic Function MV Pk E: 0.72 MV Pk A: 0.36 E/A: 2.00 E'Medial: 7.56 E/E' Med: 9.50 E' Laterial: 10.50 E/E' Lat: 6.90 Right Ventricle TAPSE (mm): 28.10 TVS' Peter: 16.20 Tricuspid Valve TR Pk Peter: 2.32 TR Pk Grad: 22.00 RA Press: 3.00 RVSP: 25.00 Great Vessels Aorta Sinus of Valsalva: 4.31 2.0-3.5 cm Ao Asc: 3.60 2.1-3.4 cm Updated in Other Vendor System with Status of Final Miguel Ferrari MD electronically signed on 03/08/2025 3:24:49 PM with status of Final
--- OUTSIDE RECORDS SUMMARY | 2025-03-08 07:48 | XMS_ITS | Clinical Summary ---
[place] [address] Care Team Providers Care Manpower Development Manager Name Role Phone Alessia Chaparro Trina OLIVEIRA Primary Care Provider Allergies No known active allergies Medications ibuprofen (Advil) 200 mg Tablet Take 400 mg by mouth every 6 hours as needed for Pain. Active Immunizations Immunization Administration Dates Next Due Covid-19 Monovalent (Moderna Spikevax) 12yrs+ ([id number]) 08/21/2020,07/25/2020 Social History Tobacco Use Types Packs/Day [...] Done Comments CT Colonography 1970 Colonoscopy 1969 FIT 1969 Sigmoidoscopy (10 year) with FIT yearly 1970 Sigmoidoscopy 1970 HIV screen 1987 Hepatitis C Screening 1987 Lipid Screening 1987 Hepatitis B vaccine (0-59 yr s) and Risk (1) 1988 Tetanus/Diphtheria/Pertussis Vaccines (1 - Tdap) 1988 Pneumoccocal Vaccine: 50+ (1 of 1 - PCV) 2019 Zoster vaccine (1 of 2) 2019 Advance Directive 2024 Colorectal Cancer Screening 08/02/2024 FIT DNA 08/02/2024 08/02/2021 Covid-19 Vaccine (3 - season) 2024, 07/25/2020 Influenza (Flu) vaccine (1 o f 1 - Influenza standard series) 12/31/2024 Insurance MEDICAID [place] Care Teams Manpower Development Manager Relationship Specialty Start Date End Date Alessia Chaparro DO PCP - General Family Medicine 10/17/20
== END ==
LOC: HO.CARD 07:46
PROVIDERS: PCP Nurse Practitioner Family; Visit Provider Nurse Practitioner Family
DX: I49.8 Other specified cardiac arrhythmias (principal); R06.02 Shortness of breath; E78.00 Pure hypercholesterolemia, unspecified
CPT/HCPCS: 78452; 93017; 93306; A9500; Q9957

== ENCOUNTER → 2025-03-08 07:48 | Outpatient (BNV) | payer BC, SELFPAY | PROVIDERS: PCP Nurse Practitioner Family | DX: I42.2 Other hypertrophic cardiomyopathy (principal); I51.7 Cardiomegaly; I34.0 Nonrheumatic mitral (valve) insufficiency; I49.1 Atrial premature depolarization; I49.3 Ventricular premature depolarization; R06.02 Shortness of breath | CPT/HCPCS: 78452; 93016; 93018; 93320; 93325; 93350; 93352 ==

== ENCOUNTER 2025-03-14 13:02 | Outpatient (AMB) | payer BC, SELFPAY ==
[2025-03-14 13:03] VITALS: BP 120/70; PULSE 53; BMI 27.6
--- NOTE | 2025-03-14 13:03 | MHC.OFFVIS ---
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 He states that he has had some COVID infections about 2-3 times. Since that time, he has been feeling somewhat short of breath, almost for the last couple of years or so. However, in the last 2-3 months he has been noticing increasing shortness of breath. Now any form of activity makes him feel short of breath. Sometimes he is feeling short of breath just sitting and not doing anything. He is noticing that his heart rates are sometimes in the 40s and he is wondering if that is making him short of breath. Otherwise, he also feels like a stitch in his abdomen. Some dry cough. No exertional angina. It seems that he might have had PVCs in the past per his description. No known coronary disease or myocardial infarction or cardiomyopathy. [facility] Medical History (Updated 03/14/25 @ 13:51 by Elias Mcintyre MD) Elevated cholesterol Asthma Vaccine counseling Sleep apnea Back disorder Surgical History (Updated 07/16/24 @ 13:34 by Mik Frankel MD) H/O hernia repair (05/03/24) H/O colonoscopy H/O microdiscectomy H/O vasectomy Family History (Updated 03/14/25 @ 13:07 by Maribel Mir) Mother Asthma High blood pressure Diabetes Cardiovascular disease Maternal Grandmother Mouth cancer Father No problems noted. 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 Cognitive needs: No Hearing needs: Yes Vision needs: No Review of Systems Const Denies weakness ENT Reports dizziness Card Denies chest pain, Denies chest pain with activity, Reports syncope, Denies rapid heart rate, Denies pedal edema, Denies edema, Denies leg edema, Denies lightheadedness, Denies palpitations, Reports dyspnea, Reports dyspnea on exertion and Reports orthopnea Resp Denies cough, Reports dyspnea and Reports dyspnea on exertion GI Reports abdominal pain, Denies hematochezia and Denies change in stool character Musc Denies abnormal gait, Denies muscle cramps, Denies muscle weakness, Denies numbness, Denies radiating pain into limb and Denies tingling Neuro Denies abnormal gait, Reports dizziness, Reports syncope, Denies numbness, Denies tingling and Denies weakness Endo Denies palpitations Physical Exam Vital Signs: Last Vital Signs Pulse 53 03/14/25 13:03 BP 120/70 03/14/25 13:03 BMI result Body Mass Index 27.6 Const General: comfortable and no acute distress Orientation/consciousness: patient oriented x3 HEENT Other: Unremarkable Head: Yes normal to inspection Neck Neck: Yes normal visual inspection Chest Chest palpation & inspection: normal inspection of the chest Resp Auscultation: clear to auscultation bilaterally Cardio Palpation: normal PMI Heart sounds: S1 normal heart sound present, S2 normal heart sound present, no gallops, no murmurs and no rubs GI Palpation (GI): Soft to palpation Back/Spine/Pelvis Other: unremarkable Skin General skin exam: no rashes or lesions noted Neuro General: patient oriented x3 Extrem General: Yes normal to inspection Psych Mental Status: mental status grossly normal Assessment & Plan Assessment & Plan (1) SOB (shortness of breath): Code(s): R06.02 - Shortness of breath Category: Medical (2) Bradycardia: Code(s): R00.1 - Bradycardia, unspecified Category: Medical Plan Cardiac studies reviewed. In the baseline EKG, underlying rhythm is sinus at 82/Min; minimal criteria for LVH versus normal variant; no clear ischemic changes; normal AL and corrected QT. In the stress test, he was able to do 11.7 METS on Mikhail protocol and reached 75% target heart rate with shortness of breath but no chest pain. Frequent PACs/PVCs. Normal blood pressure response. Perfusion component is still to be reported. Due to technical issues could not get CT attenuation. And hence based on perfusion possible inferior defect but could also be just artifactual. Anyway final report is pending. Echocardiogram report as well as images reviewed. LVEF is preserved at around 50-60%. There is basal septal hypertrophy. LV filling pressure is normal based on E/e'. No significant valvular findings or pulmonary hypertension. IVC is normal in size and with normal respiratory variation. LV stroke volume seem normal. In the EKG part, there is sinus bradycardia/sinus arrhythmia noted. A prior BNP/high sensitivity troponin are well within range. Enterovirus positive in December. Overall, his symptoms of shortness of breath even while resting associated with cough seem more respiratory in nature. Less likely cardiac, but still needs evaluation. In the absence of angina, obstructive CAD is less likely. We will start with a chest CTA. This can evaluate for any possible pulmonary embolism although less likely and additionally the pulmonary parenchyma as it seems his symptoms started after COVID and more recently worse after enterovirus infection. Due to his concern for heart rates going into the 40s, we will do a Holter monitor. Of note, there was suggestion of chronotropic incompetence during the stress test, but that would still not cause any resting shortness of breath and other symptoms like cough extra. We will await the final report on the stress testing. Plan discussed with patient and he is in full agreement. We will follow up after the testing. Orders: Orders Basic Metabolic Panel Today R06.02 - Shortness of breath NT Pro B Type Natriuretic Pept Today I50.9 - Heart failure, unspecified, R06.02 - Shortness of breath ECG 3 day holter monitor Today R00.1 - Bradycardia, unspecified CT angio chest PE protocol Today R06.02 - Shortness of breath Coding Level of Care Code New Pt Level 5 (02733) Complex EM visit Add On G2211 Diagnoses SOB (shortness of breath) R06.02 Bradycardia R00.1
--- OUTSIDE RECORDS SUMMARY | 2025-03-14 16:20 | XMS_ITS | Clinical Summary ---
[place] [address] Care Team Providers Care Cocoa Milling Machine Operator Name Role Phone Alessia Chaparro Trina OLIVEIRA Primary Care Provider Allergies No known active allergies Medications ibuprofen (Advil) 200 mg Tablet Take 400 mg by mouth every 6 hours as needed for Pain. Active Immunizations Immunization Administration Dates Next Due Covid-19 Monovalent (Moderna Spikevax) 12yrs+ ([id number]) 08/21/2020,07/25/2020 Social History Tobacco Use Types Packs/Day [...] series) 12/31/2024 Insurance MEDICAID [place] Care Teams Cocoa Milling Machine Operator Relationship Specialty Start Date End Date Alessia Chaparro DO PCP - General Family Medicine 10/17/20
== END 2025-03-14 13:35 | disposition home or self-care (01) ==
PROVIDERS: PCP Nurse Practitioner Family; Visit Provider Internal Medicine
DX: R06.02 Shortness of breath (principal); R00.1 Bradycardia, unspecified
CPT/HCPCS: 99204

== ENCOUNTER → 2025-03-18 13:32 | Outpatient (REF) | payer BC, SELFPAY ==
--- NOTE | 2025-03-18 13:36 | HM_ITS ---
* Total monitoring time 3 days. * Underlying rhythm is sinus with an average rate of 48/Min. About 87% of the time, rate < 60/Min. * Supraventricular ectopy noted with a burden of 1.8%. Very short runs. One episode of accelerated junctional rhythm. * Rare ventricular ectopy. * No significant pauses or high-grade AV blocks. * No patient markers or diary events. MTDD
== END ==
LOC: HO.CARD 13:32
PROVIDERS: PCP Nurse Practitioner Family; Visit Provider Internal Medicine
DX: R00.1 Bradycardia, unspecified (principal)
CPT/HCPCS: 93242

== ENCOUNTER → 2025-03-18 13:36 | Outpatient (BNV) | payer BC, SELFPAY | PROVIDERS: PCP Nurse Practitioner Family; Visit Provider Internal Medicine | DX: I49.49 Other premature depolarization (principal) | CPT/HCPCS: 93244 ==

== ENCOUNTER 2025-03-19 07:28 | Outpatient (REF) | payer BC, SELFPAY ==
--- NOTE | ~2025-03-19 | CT_ITS ---
EXAMINATION: CT CHEST ANGIOGRAPHY WITH IV CONTRAST INDICATION: R06.02 - Shortness of breath COMPARISON: Previous chest x-ray December 2024 TECHNIQUE: Helical CT scan of the chest was performed following administration of intravenous contrast (65 mL Omnipaque 350). The contrast bolus was timed to optimally opacify the pulmonary arteries. Thin sections were obtained through the pulmonary arteries. Coronal and sagittal reformatted images were generated. 3D/MIP reconstructed images are also obtained and reviewed. This CT exam was performed with one or more of the following dose reduction techniques: automated exposure control, adjustment of the mA and/or kV according to patient size, use of iterative reconstruction technique. DLP: 153 mGy-cm CHEST: THYROID: The thyroid gland is unremarkable. PULMONARY ARTERIES: No intraluminal filling defects are identified within the pulmonary arteries to suggest pulmonary emboli. Pulmonary arteries are normal in caliber. Mild right heart strain with RV to LV ratio of 0.9. Mild reflux of contrast into the intrahepatic IVC. No reflux of contrast into the hepatic veins. LUNGS: 5 mm calcified right lower lobe nodule axial image 303 series 6. 7 mm calcified right upper lobe nodule axial image 121 series 6. MEDIASTINUM: There is no mediastinal lymphadenopathy. TJ: There is no hilar lymphadenopathy. CARDIOVASCULATURE: The heart is enlarged. There is no pericardial effusion. The thoracic aorta is normal in caliber. DEGREE OF CORONARY CALCIFICATION: none PLEURA: There is no pleural effusion. No pneumothorax. MAIN AIRWAYS: The mainstem bronchi and proximal branches are patent. AXILLA: There is no axillary lymphadenopathy. UPPER ABDOMEN: The visualized portions of the liver, spleen, and adrenals are unremarkable. BONES AND SOFT TISSUES: Mild degenerative changes of the spine. CT/CT angio chest PE protocol IMPRESSION: No evidence of pulmonary emboli. Enlarged heart and evidence of right heart strain. Small calcified right pulmonary nodules probably representing calcified granulomas. Electronically signed by: Korin Pike MD 03/19/2025 11:47 AM [facility]
--- NOTE | 2025-03-19 07:37 | ECG_ITS ---
Test Reason : BRADYCARDIA Blood Pressure : */* mmHG Vent. Rate : 52 BPM Atrial Rate : 52 BPM P-R Int : 122 ms QRS Dur : 100 ms QT Int : 436 ms P-R-T Axes : 29 -5 35 degrees QTcB Int : 405 ms Sinus bradycardia Nonspecific ST and T wave abnormality Otherwise normal ECG When compared with ECG of 06-Nov-2024 19:17, Vent. rate has decreased by 30 bpm Referred By: Sobia Garcia Electronically Signed By: SOBIA GARCIA
[2025-03-19 08:12] LABS: Anion Gap 13 (12-20); Blood Urea Nitrogen 21 mg/dL (9-16); Calcium 9.7 mg/dL (8.4-10.2); Carbon Dioxide 27 mmol/L (22-29); Chloride 108 mmol/L (96-108); Estimated Glomerular Filt Rate > 60; Potassium 4.1 mmol/L (3.3-5.1); Sodium 144 mmol/L (135-145)
[2025-03-19 08:25] LABS: NT Pro B Type Natriuretic Pept 451.9 pg/mL (<300)
[2025-03-19] MEDS: iohexoL 350 MG/ML 100 ML INFUS..BTL IV (10:47)
== END 2025-03-19 07:29 | disposition home or self-care (01) ==
LOC: HO.CT 07:28
PROVIDERS: PCP Nurse Practitioner Family; Visit Provider Internal Medicine
DX: R06.02 Shortness of breath (principal); I50.9 Heart failure, unspecified; R00.1 Bradycardia, unspecified
CPT/HCPCS: 36415; 71275; 80048; 83880; 93005; Q9967

== ENCOUNTER → 2025-03-19 07:37 | Outpatient (BNV) | payer BC, SELFPAY | PROVIDERS: PCP Nurse Practitioner Family; Visit Provider Internal Medicine | DX: R00.1 Bradycardia, unspecified (principal) | CPT/HCPCS: 93010 ==

== ENCOUNTER → 2025-03-19 10:26 | Outpatient (BNV) | payer BC, SELFPAY | PROVIDERS: PCP Nurse Practitioner Family; Visit Provider Radiology Diagnostic Radiology | DX: I51.7 Cardiomegaly (principal); R91.8 Other nonspecific abnormal finding of lung field | CPT/HCPCS: 71275 ==

== ENCOUNTER 2025-03-25 14:42 | Outpatient (AMB) | payer BC, SELFPAY ==
[2025-03-25 14:44] VITALS: BP 138/78; PULSE 61; BMI 27.2
--- NOTE | 2025-03-25 14:44 | A.OFFVIS_ITS ---
Vital Signs 03/25/25 14:44 Height 6 ft 1 in Weight 206 lb BMI 27.2 BP 138/78 Blood Pressure Location Lt brachial Position Sitting Pulse 61 Pulse Source Pulse Oximeter Intake Visit Reasons: f/up- holter per HS Allergies No Known Allergies Allergy (Verified 01/25/25 15:47) Medication List - Last Reconciled 03/25/25 by Elias Mcintyre MD albuterol sulfate 90 mcg/actuation 2 puffs inhalation Q4-6H PRN atorvastatin 10 mg PO BEDTIME 90 days benzonatate 100 mg PO BID PRN 5 days HPI Comments Details: Isiah returns for follow-up. Recently seen in consultation for shortness of breath. He states that he has had some COVID infections about 2-3 times. Since that time, he has been feeling somewhat short of breath, almost for the last couple of years or so. However, in the last 2-3 months he has been noticing increasing shortness of breath. Now any form of activity makes him feel short of breath. Sometimes he is feeling short of breath just sitting and not doing anything. He is noticing that his heart rates are sometimes in the 40s and he is wondering if that is making him short of breath. No exertional angina. It seems that he might have had PVCs in the past per his description. No known coronary disease or myocardial infarction or cardiomyopathy. He has completed a fairly comprehensive workup including echocardiogram, stress test, chest CTA and Holter monitor. More or less the same as before. [facility] Medical History (Updated 03/14/25 @ 13:51 by Elias Mcintyre MD) Elevated cholesterol Asthma Vaccine counseling Sleep apnea Back disorder Surgical History (Updated 07/16/24 @ 13:34 by Mik Frankel MD) H/O hernia repair (05/03/24) H/O colonoscopy H/O microdiscectomy H/O vasectomy Family History (Updated 03/14/25 @ 13:07 by Maribel Mir) Mother Asthma High blood pressure Diabetes Cardiovascular disease Maternal Grandmother Mouth cancer Father No problems noted. 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 Cognitive needs: No Hearing needs: Yes Vision needs: No Review of Systems Const Denies weakness ENT Denies dizziness Card Denies chest pain, Denies chest pain with activity, Denies syncope, Denies rapid heart rate, Denies pedal edema, Denies edema, Denies leg edema, Denies lightheadedness, Denies palpitations, Reports dyspnea, Denies dyspnea on exertion and Denies orthopnea Resp Denies cough, Reports dyspnea and Denies dyspnea on exertion GI Denies hematochezia and Denies change in stool character Musc Denies abnormal gait, Denies muscle cramps, Denies muscle weakness, Denies numbness, Denies radiating pain into limb and Denies tingling Neuro Denies abnormal gait, Denies dizziness, Denies syncope, Denies numbness, Denies tingling and Denies weakness Endo Denies palpitations Physical Exam Vital Signs: Last Vital Signs Pulse 61 03/25/25 14:44 BP 138/78 03/25/25 14:44 BMI result Body Mass Index 27.2 Const General: comfortable and no acute distress Orientation/consciousness: patient oriented x3 HEENT Other: Unremarkable Head: Yes normal to inspection Neck Neck: Yes normal visual inspection Chest Chest palpation & inspection: normal inspection of the chest Resp Auscultation: clear to auscultation bilaterally Cardio Palpation: normal PMI Heart sounds: S1 normal heart sound present, S2 normal heart sound present, no gallops, no murmurs and no rubs GI Palpation (GI): Soft to palpation Back/Spine/Pelvis Other: unremarkable Skin General skin exam: no rashes or lesions noted Neuro General: patient oriented x3 Extrem General: Yes normal to inspection Psych Mental Status: mental status grossly normal Assessment & Plan Assessment & Plan (1) SOB (shortness of breath): Code(s): R06.02 - Shortness of breath Category: Medical (2) Bradycardia: Code(s): R00.1 - Bradycardia, unspecified Category: Medical (3) Abnormal stress test: Onset Date: ~03/08/25 Code(s): R94.39 - Abnormal result of other cardiovascular function study Category: Medical Plan Cardiac studies reviewed. In the stress test, he was able to do 11.7 METS on Mikhail protocol and reached 75% target heart rate with shortness of breath but no chest pain. Frequent PACs/PVCs. Normal blood pressure response. Perfusion component reported have RCA territory ischemia but cannot exclude diaphragmatic artifact either. Echocardiogram report as well as images reviewed. LVEF is preserved at around 50-60%. There is basal septal hypertrophy. LV filling pressure is normal based on E/e'. No significant valvular findings or pulmonary hypertension. IVC is normal in size and with normal respiratory variation. LV stroke volume seem normal. In the EKG part, there is sinus bradycardia/sinus arrhythmia noted. Chest CT reported have no pulmonary embolism. No coronary artery calcification or pericardial effusion. No significant pulmonary findings. Mild reflux of contrast into the intrahepatic IVC. Mild right heart strain. In the Holter monitor, underlying rhythm is sinus bradycardia with an average rate of 48/Min. About 87% time, bradycardic. Supraventricular ectopy and one episode of accelerated junctional rhythm. No long pauses, asystole or high- grade AV blocks. A prior BNP/high sensitivity troponin are well within range. Enterovirus positive in December. Overall, ongoing shortness of breath of uncertain etiology. We discussed further workup. To clarify the stress test findings further, we will arrange a diagnostic catheterization -to include left as well as right heart catheterization. With regard to the concern of bradycardia not entirely clear if that could still explain his symptoms as he feels short of breath even sitting. Exertional shortness of breath could be from chronotropic incompetence as he did not reach the target heart rate during stress test. Any case, we will refer him to EP for further evaluation to decide if pacemaker is appropriate or not. Explained to him that that would be a delay in getting these performed because of inherent delays in the system and also because of availability due to upcoming holidays. In case there is worsening of symptoms, advised him to seek emergency care. He understands that. He is also concerned if there could be Lyme disease and hence we will order serologies for that. Overall plan will be to get a diagnostic left and right heart catheterization and EP consultation. Patient seems quite satisfied with this plan. Discussion Notes I discussed with the patient that the cause for the shortness of breath is not immediately clear, as the degree of bradycardia is not typically severe enough to cause symptoms at rest. I reviewed the recent CT scan, which was reassuring and ruled out blood clots, pneumonia, or fluid around the lungs and heart. I also explained that the Holter monitor showed a slow heart rate without any dangerous pauses, and the few extra beats noted were benign. I recommended a cardiac catheterization to definitively check for blockages and measure heart pressures, as the stress test imaging was inconclusive due to artifact. I explained the procedure would be done through the wrist at [facility] under sedation and would take about an hour. We discussed a referral to an rounding machine tender for an expert opinion on the bradycardia. I emphasized that implanting a pacemaker is a significant decision with lifelong implications, including infection risk, and that we should be certain it is necessary before proceeding, a sentiment with which the patient agreed. In response to the patient's concerns, I noted that tests for COVID-19 in December were negative and that Lyme disease typically presents differently, but I agreed to order a Lyme test. I advised the patient to seek emergency care for any significant wors ening of symptoms. Patient was informed and verbally consented to the use of an ambient scribe for clinic note documentation during this visit. Orders: Orders Basic Metabolic Panel Today R94.39 - Abnormal result of other cardiovascular function study Cardiac Cath LT Diagnostic Today I25.10 - Atherosclerotic heart disease of [place] coronary artery without angina pectoris, R94.39 - Abnormal result of other cardiovascular function study Cardiac Cath RT Diagnostic Today R06.02 - Shortness of breath Complete Blood Count no Diff Today R94.39 - Abnormal result of other cardiovascular function study Prothrombin Time INR Today R94.39 - Abnormal result of other cardiovascular function study Lyme IgG/IgM w/reflex to WB Today A69.29 - Other conditions associated with Lyme disease Referrals Cardiac Electrophysiology Referral R00.1 - Bradycardia, unspecified Patient Instructions: - We will schedule a heart catheterization procedure to look closely at your heart arteries and measure pressures. Our office will contact you to arrange the date. - You will need someone to drive you home after the catheterization procedure. - We are also arranging a consultation with a heart rhythm specialist (rounding machine tender) to get another opinion on your slow heart rate. - We will order blood work before your procedure, which will include a test for Lyme disease. - If your symptoms, such as shortness of breath, get much worse, please go to the nearest emergency room for care. Coding Level of Care Code Est Pt Level 5 (18026) Complex visit Add On G2211 Diagnoses SOB (shortness of breath) R06.02 Bradycardia R00.1 Abnormal stress test R94.39
--- OUTSIDE RECORDS SUMMARY | 2025-03-25 19:32 | XMS_ITS | Clinical Summary ---
[place] [address] Care Team Providers Care Vessel Master Name Role Phone Alessia Chaparro Trina OLIVEIRA Primary Care Provider Allergies No known active allergies Medications ibuprofen (Advil) 200 mg Tablet Take 400 mg by mouth every 6 hours as needed for Pain. Active Immunizations Immunization Administration Dates Next Due Covid-19 Monovalent (Moderna Spikevax) 12yrs+ ([id number]) 08/21/2020,07/25/2020 Social History Tobacco Use Types Packs/Day [...] series) 12/31/2024 Insurance MEDICAID [place] Care Teams Vessel Master Relationship Specialty Start Date End Date Alessia Chaparro DO PCP - General Family Medicine 10/17/20
== END 2025-03-25 15:19 | disposition home or self-care (01) ==
LOC: HO.HCS 14:42
PROVIDERS: PCP Nurse Practitioner Family; Visit Provider Internal Medicine
DX: R06.02 Shortness of breath (principal); R00.1 Bradycardia, unspecified; R94.39 Abnormal result of other cardiovascular function study
CPT/HCPCS: 99215

== ENCOUNTER 2025-04-01 07:35 | Outpatient (REF) | payer BC, SELFPAY ==
--- OUTSIDE RECORDS SUMMARY | 2025-04-01 07:38 | XMS_ITS | Clinical Summary ---
[place] [address] Care Team Providers Care Catalyst Operator Chief Name Role Phone Alessia Chaparro Trina OLIVEIRA Primary Care Provider Allergies No known active allergies Medications ibuprofen (Advil) 200 mg Tablet Take 400 mg by mouth every 6 hours as needed for Pain. Active Immunizations Immunization Administration Dates Next Due Covid-19 Monovalent (Moderna Spikevax) 12yrs+ ([id number]) 08/21/2020,07/25/2020 Social History Tobacco Use Types Packs/Day [...] series) 12/31/2024 Insurance MEDICAID [place] Care Teams Catalyst Operator Chief Relationship Specialty Start Date End Date Alessia Chaparro DO PCP - General Family Medicine 10/17/20
[2025-04-01 10:40] LABS: Hematocrit 49.7 % (42.0-52.0); Hemoglobin 16.9 g/dl (14.0-18.0); Mean Corpuscular HGB Conc 34.0 g/dl (31.0-36.0); Mean Corpuscular Hemoglobin 30.1 pg (27.0-33.0); Mean Corpuscular Volume 88.4 fL (80.0-98.0); NRBC Abs Auto 0.000 X10*3/uL (0.0-0.012); NRBC Pct Auto 0.0 /100WBC (0.0-0.2); Platelet Count 210 X10*3/uL (160-400); Red Blood Count 5.62 X10*6/uL (4.60-5.80); White Blood Count 7.3 X10*3/uL (4.8-10.8)
[2025-04-01 10:47] LABS: INTERNATIONAL NORM RATIO 0.9 (0.9-1.1); Prothrombin Time 11.5 SEC (11.2-13.5)
[2025-04-01 11:38] LABS: Anion Gap 12 (12-20); Blood Urea Nitrogen 16 mg/dL (9-16); Calcium 9.5 mg/dL (8.4-10.2); Carbon Dioxide 27 mmol/L (22-29); Chloride 107 mmol/L (96-108); Estimated Glomerular Filt Rate > 60; Potassium 4.1 mmol/L (3.3-5.1); Sodium 142 mmol/L (135-145)
[2025-04-02 09:19] LABS: Lyme Abs Screen <0.90 index
== END 2025-04-01 07:36 | disposition home or self-care (01) ==
LOC: HO.HMGCLDS 07:35
PROVIDERS: PCP Nurse Practitioner Family; Visit Provider Internal Medicine
DX: Z51.81 Encounter for therapeutic drug level monitoring (principal); A69.29 Other conditions associated with Lyme disease; R94.39 Abnormal result of other cardiovascular function study
CPT/HCPCS: 36415; 80048; 85027; 85610; 86617; 86618

== ENCOUNTER → 2025-04-11 23:59 | Outpatient (BNV) | payer BC, SELFPAY | PROVIDERS: PCP Nurse Practitioner Family; Visit Provider Internal Medicine Cardiovascular Disease | DX: I25.118 Atherosclerotic heart disease of native coronary artery with other forms of angina pectoris (principal) | CPT/HCPCS: 93460; 99152 ==

== ENCOUNTER 2025-04-24 13:08 | Outpatient (AMB) | payer BC, SELFPAY ==
[2025-04-24 13:09] VITALS: BP 116/72; PULSE 62; BMI 40.5
--- NOTE | 2025-04-24 13:09 | MHC.OFFVIS ---
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 Patient with a history of mild sleep apnea on CPAP therapy, sinus bradycardia who has been recently getting short of breath with exertion and underwent an ETT showing chronotropic incompetence and RCA territory ischemia on the myocardial perfusion. Given this, patient was referred out to EP for evaluation of pacing therapy as well as underwent cardiac catheterization that showed no obstructive coronary artery disease. Patient met with EP and is planning for a pacemaker on May 31. Patient is continuing to report shortness of breath with exertion such as climbing up a flight of stairs however patient does not get these symptoms with doing yoga or pushups. Patient is otherwise denying any exertional chest discomfort, palpitations, dizziness, orthopnea, PND, leg edema, presyncope, or syncope. [facility] Medical History (Updated 04/24/25 @ 13:30 by Maxime Paige NP) Abnormal stress test (~03/08/25) Elevated cholesterol Asthma Vaccine counseling Sleep apnea Back disorder Surgical History Hx of cardiac cath H/O hernia repair (05/03/24) H/O colonoscopy H/O microdiscectomy H/O vasectomy Family History Mother Asthma High blood pressure Diabetes Cardiovascular disease Maternal Grandmother Mouth cancer Father No problems noted. Social History Housing: House Are you a primary career services manager to a significant other at home: No Do you presently have visiting nurse or other home services: No Alcohol intake: current Alcohol intake frequency: holidays/special occasions only Patient Tobacco Use Status: Never used Tobacco e-Cigarette/Vaping Use: Never Used Second Hand Smoke Exposure: No service: No Current occupational status: employed Current occupation: [employer] Cognitive needs: No Hearing needs: Yes Vision needs: No Review of Systems Const Denies daytime sleepiness, Denies difficulty sleeping, Denies snoring, Denies stops breathing during sleep and Denies weakness Card Denies chest pain, Denies rapid heart rate, Denies irregular heart rhythm, Denies claudication, Denies leg edema, Denies lightheadedness, Denies palpitations, Denies dyspnea, Reports dyspnea on exertion, Denies orthopnea, Denies paroxysmal nocturnal dyspnea and Denies slow heart rate Resp Denies cough, Denies dyspnea, Reports dyspnea on exertion and Denies snoring GI Reports no additional complaints, Denies hematochezia, Denies change in stool character and Denies dyspepsia Musc Denies abnormal gait, Denies muscle weakness and Denies numbness Neuro Denies abnormal gait, Denies numbness and Denies weakness Endo Denies palpitations Physical Exam Vital Signs: Last Vital Signs Pulse 62 04/24/25 13:09 BP 116/72 04/24/25 13:09 BMI result Body Mass Index 40.5 Const General: cooperative, healthy appearing, comfortable and no acute distress Orientation/consciousness: patient oriented x3 HEENT Head: Yes normal to inspection Neck Neck: Yes normal visual inspection, Yes trachea midline and Yes supple Chest Chest palpation & inspection: normal inspection of the chest Resp Effort & Inspection: normal respiratory effort Auscultation: clear to auscultation bilaterally, no crackles, no rales, no rhonchi and no wheezes Cardio Jugular venous distension: no JVD Palpation: normal PMI Rate: regular rate Rhythm: regular rhythm Heart sounds: S1 normal heart sound present, S2 normal heart sound present, no click, no gallops, no murmurs and no rubs Peripheral pulses: Peripheral pulses 2+ throughout GI Inspection: Yes normal to inspection Palpation (GI): Soft to palpation Auscultation: normal bowel sounds Skin General skin exam: no rashes or lesions noted Neuro General: patient oriented x3 Extrem General: Yes normal to inspection, No no pedal edema and No calf tenderness Psych Appearance: grossly normal Mental Status: mental status grossly normal Speech and movement: Normal speech and movement present Assessment & Plan Assessment & Plan (1) Status post cardiac catheterization: Code(s): Z98.890 - Other specified postprocedural states Plan: 03/08/2025-patient underwent a stress test with great workload however chronotropic incompetence with a heart rate highest up to 122 beats per minute at 10 Mets of exercise. Myocardial perfusion study showed RCA territory ischemia. 03/18/2025-Holter study showed underlying sinus rhythm with bradycardia 87% of the time, rare PVCs and PACs with a burden of 1.8 % and 1 episode of accelerated junctional rhythm. 04/11/2025-cardiac catheterization with Dr. Stern showed no significant coronary artery disease and normal filling pressures. Continue statin therapy. Right wrist catheterization site is well healed. Advised on heart healthy diet and regular exercise. (2) Bradycardia: Code(s): R00.1 - Bradycardia, unspecified Category: Medical Plan: Patient met with EP on 04/18/2025 and given his long history of sinus bradycardia and chronotropic incompetence, patient is planned for a pacemaker implantation on 05/31/2025. (3) ESDRAS on CPAP: Code(s): G47.33 - Obstructive sleep apnea (adult) (pediatric) Category: Medical Plan: Continue CPAP therapy. Followed by sleep medicine. (4) SOB (shortness of breath): Code(s): R06.02 - Shortness of breath Category: Medical Plan: As above. 03/19/2025-patient had undergone a chest CTA that showed 5 mm calcified right lower lobe nodule and a 7 mm calcified right upper lobe nodule. In case of continued shortness of breath after pacemaker therapy, we will plan for a pulmonary evaluation. Patient is agreeable with this plan. Follow up in 4 months. In the interim, patient will call the office with any concerns or change in symptoms. This note was generated using voice recognition software. While every effort has been made to ensure accuracy and proper cisco unified communications engineer, there may be occasional errors that could affect the content or meaning of the described symptoms. Orders: Orders PFT pulmonary function test Today R06.02 - Shortness of breath Coding Level of Care Code Est Pt Level 4 (59377) Add On Problem Visit Only Diagnoses Status post cardiac catheterization Z98.890 Bradycardia R00.1 ESDRAS on CPAP G47.33 SOB (shortness of breath) R06.02 Time Spent (min) 32 Comment Time spent in reviewing the chart, test results, assessment, counseling and documentation.
--- OUTSIDE RECORDS SUMMARY | 2025-04-24 13:10 | XMS_ITS | Clinical Summary ---
[place] [address] Care Team Providers Care President And Chief Executive Officer Name Role Phone Alessia Chaparro rTina OLIVEIRA Primary Care Provider Allergies No known active allergies Medications ibuprofen (Advil) 200 mg Tablet Take 400 mg by mouth every 6 hours as needed for Pain. Active Immunizations Immunization Administration Dates Next Due Covid-19 Monovalent (Moderna Spikevax) 12yrs+ ([id number]) 08/21/2020,07/25/2020 Social History Tobacco Use Types Packs/Day [...] series) 12/31/2024 Insurance MEDICAID [place] Care Teams President And Chief Executive Officer Relationship Specialty Start Date End Date Alessia Chaparro DO PCP - General Family Medicine 10/17/20
== END 2025-04-24 13:28 | disposition home or self-care (01) ==
LOC: HO.HCS 13:08
PROVIDERS: PCP Nurse Practitioner Family
DX: Z98.890 Other specified postprocedural states (principal); R00.1 Bradycardia, unspecified; G47.33 Obstructive sleep apnea (adult) (pediatric); R06.02 Shortness of breath
CPT/HCPCS: 99214